=== PATIENT | male | born 1985 | race Caucasian/White ===

== ENCOUNTER 2020-06-24 21:10 | Observation (INO) | payer MEDICAID, SELFPAY ==
--- NOTE | ~2020-06-24 | CT_ITS ---
EXAMINATION: CTA chest PE protocol DATE: 06/26/2020 16:15 INDICATION: Tachycardia TECHNIQUE: Computed tomography angiography (CTA) of the chest was performed with 100 mL Omnipaque-350 intravenous contrast timed to evaluate the pulmonary arteries. Coronal maximum intensity projection 3D-reconstructions were created by the technologist. The dose-length product (DLP) was 956.06 mGy-cm. Automated exposure control and iterative reconstruction technique were employed. COMPARISON: None. FINDINGS: The pulmonary arteries are well-opacified. No pulmonary embolism is identified. There is gibbons bsegmental atelectasis of the lower lobes. The lungs are free of focal airspace opacities. There is n o pleural effusion or pneumothorax. No pathologically enlarged thoracic lymph nodes are identified. T he heart size is normal. There is a small sliding hiatal hernia. IMPRESSION: 1. No pulmonary embolism or acute cardiopulmonary abnormality. Reviewed, dictated and finalized at location A.
[2020-06-24 21:26] VITALS: BP 169/96; PULSE 147; RESP 19; TEMP 36.3; O2SAT 98
[2020-06-24 21:52] LABS: Basophils Absolute Auto 0.1 K/mm3 (0.0-0.1); Basophils Percent Auto 0.6 % (0.2-1.2); Eosinophils Absolute Auto 0.1 K/mm3 (0-0.3); Eosinophils Percent Auto 0.5 % (0-4.4); Hemoglobin 12.8 g/dL (14.0-18.0); Immature Granulocyte Absolute 0.19 K/mm3 (0.00-0.031); Immature Granulocyte Percent A 1.1 % (0-0.5); Lymphocytes Absolute Auto 2.46 K/mm3 (0.9-3.2); Lymphocytes Percent Auto 14.1 % (18.3-44.2); Mean Corpuscular HGB Conc 33.7 g/dl (32-36); Mean Corpuscular Hemoglobin 28.6 pg (26-34); Mean Corpuscular Volume 84.8 fl (80-100); Mean Platelet Volume 11.1 fl (7.4-10.4); Monocytes Percent Auto 5.6 % (2.6-8.5); Neutrophils Absolute Auto 13.6 K/mm3 (1.3-6.7); Neutrophils Percent Auto 78.1 % (45.5-73.1); Platelet Count Result 414 k/mm3 (150-375); Red Blood Count 4.48 M/mm3 (4.6-6.20); White Blood Count 17.4 K/mm3 (4.5-10.0)
[2020-06-24 22:00] LABS: Add Urine Microscopic? YES; Appearance Urine Clear (Clear); Bilirubin Urine Negative (Negative); Blood Urine Negative (Negative); Color Urine Straw (Yellow); Glucose Urine UA Negative (Negative); Ketones Urine Trace mg/dL (Negative); Leukocyte Esterase Ur Negative LEU/UL (Negative); Mucus Urine Rare /lpf; Nitrate Urine Negative (Negative); Protein Urine Negative (Negative); RBC Urine 0-2 /hpf (0-2); Specific Grav Ur 1.027 (1.001-1.035); Squamous Epithelial Cell Urine Rare /hpf (Few); Urobilinogen Urine Negative mg/dL (<2.0); WBC Urine 0-3 /hpf
[2020-06-24 22:05] LABS: Alanine Aminotransferase 26 U/L (4-50); Albumin Level 4.5 g/dL (3.5-5.1); Alkaline Phosphatase 73 U/L (38-126); Anion Gap 10 mmol/L (8-16); Aspartate Amino Transferase 22 U/L (17-59); Bilirubin,Total < 0.1 mg/dL (0.2-1.3); Blood Urea Nitrogen 37 mg/dL (9-20); Calcium 9.1 mg/dL (8.4-10.2); Carbon Dioxide 24 mmol/L (22-30); Chloride 103 mmol/L (98-107); Estimated CRCL calculation 133 ml/min; Estimated Glomerular Filt Rate > 60; Glucose 143 mg/dL (75-110); Lipase 46 U/L (23-300); Potassium 4.4 mmol/L (3.4-5.0); Sodium 137 mmol/L (137-145)
[2020-06-24] MEDS: LACTATED RINGERS 1,000 ML 999 ML IV CONT (22:27)
[2020-06-24] MEDS: PANTOPRAZOLE SODIUM IV 40 MG VIAL 80 MG IV PUSH (22:27)
[2020-06-24 22:33] LABS: Prothrombin Time 12.7 Seconds (11.1-14.7)
[2020-06-24 22:36] VITALS: BP 149/93; BP 154/104; PULSE 138; PULSE 139
[2020-06-24 22:37] VITALS: BP 154/108; PULSE 139
--- NOTE | 2020-06-24 22:52 | ED.GENADULT ---
HPI - General Adult General Chief complaint: Unspecified Stated complaint: black stool Time Seen by Provider: 06/24/20 21:47 Source: patient Mode of arrival: ambulatory Limitations: no limitations History of Present Illness HPI narrative: This patient is a 34 year old male who presents for evaluation of dark stools. Patient states last night he was not feeling well. This morning he noticed that his stools were dark . He has had 2 loose dark stools today. He called his PCP to discuss his symptoms and he was referred to the ER. He denies nausea, vomiting, abdominal pain, dizziness, chest pain. He denies history of PUD or GI bleeding. He does reports history of GERD which he takes tums . He states that he takes excedrine daily for months for headaches. He reports he is sweating but that is because his mask is making him hot. Related Data Home Medications Medication Instructions Recorded Confirmed lisinopril 10 mg PO DAILY 06/25/20 06/25/20 Allergies Allergy/AdvReac Type Severity Reaction Status Date / Time No Known Allergies Allergy Mild Verified 01/09/20 09:49 Review of Systems Review of Systems: All systems reviewed & are unremarkable except as noted in HPI and below Constitutional: Constitutional: Denies chills and Denies fever(s) Cardiovascular: Cardiovascular: Denies chest pain Respiratory: Respiratory: Denies dyspnea Gastrointestinal: Gastrointestinal: Denies abdominal pain, Denies nausea and Denies vomiting PMFSH Past Medical History Medical History Essential (primary) hypertension Gastro-esophageal reflux disease without esophagitis Surgical History Surgical History History of tonsillectomy and adenoidectomy Family History Family History Father Hypertension Family history of coronary artery disease Social History Social History Smoking status: Never smoker Second hand tobacco smoke exposure: No Alcohol intake: never Substance use: never Substance use type: does not use Gender identity (if verbalized by the patient): Male Spiritual care concerns: No Exam Const: General: no acute distress, alert and diaphoretic Orientation/consciousness: patient oriented x3 HENMT: Head: normocephalic and atraumatic Face and sinus: face symmetric Eyes: EOM: EOMs intact bilaterally Chest: Chest palpation & inspection: normal inspection of the chest Resp: Effort & Inspection: normal respiratory effort and no retractions Auscultation: clear to auscultation bilaterally Cardio: Rate: tachycardic Rhythm: regular rhythm Heart sounds: no murmurs GI: GI Palp: Yes Soft to palpation, No Tenderness to palpation present (GI), No Guarding due to palpation present (GI) and No Rigid due to palpation Auscultation: normal bowel sounds Rectal Exam: normal sphincter tone and heme positive stool Skin: General skin exam: normal color Rashes: no rashes Neuro: General: patient oriented x3 and moves all extremities Course Reevaluation(s) Date: 06/24/20 Consultations Consultation #1: I discussed case with Dr. Koko Rice who agrees to consult and agrees with protonix Date: 06/24/20 Time: 23:03 Consultation #2: I Discussed case with DR. Smith who accepts patient to IMU given tachycardia and leukocytosis Date: 06/24/20 Time: 23:35 Vital Signs Vital signs: Vital Signs Temperature 97.3 F L 06/24/20 21:26 Pulse Rate 147 H 06/24/20 21:26 Respiratory Rate 19 06/24/20 21:26 Blood Pressure 169/96 H 06/24/20 21:26 Pulse Oximetry 98 06/24/20 21:26 Temperature 96.7 F L 06/25/20 04:00 Pulse Rate 109 H 06/25/20 06:00 Respiratory Rate 20 06/25/20 04:00 Blood Pressure 132/86 06/25/20 04:00 Pulse Oximetry 99 06/25/20 04:00 Medical Decision Making V
--- NOTE | 2020-06-24 22:53 | ECG_ITS ---
Measurements Intervals [place] Rate: 130 P: 26 WV: 162 QRS: 18 QRSD: 82 T: 55 QT: 278 QTc: 409 Interpretive Statements SINUS TACHYCARDIA BORDERLINE R WAVE PROGRESSION, ANTERIOR LEADS MINIMAL Q WAVES- INFERIOR LEADS BORDERLINE T WAVE ABNORMALITY- HIGH LATERAL LEADS ABNORMAL ECG Electronically Signed On 06-25-2020 7:08:45 CDT by Ramez Celestin D.O.
[2020-06-24 23:51] LABS: Lactic Acid Reflex 1.4 mmol/L (0.7-2.1)
[2020-06-25] VITALS (20 sets, daily range): BP systolic 116–154; BP diastolic 75–102; PULSE 90–131; RESP 12–21; TEMP 35.8–37.1; O2SAT 97–100; BMI 39.6; BMI 42.5
[2020-06-25] MEDS: SODIUM CHLORIDE 0.9% IV 1,000 ML 999 ML IV CONT (00:31)
--- NOTE | 2020-06-25 00:54 | ADMGEN ---
This patient, Eleazar Vincent, was admitted to IMU Room 201-01 AT 0054. Patient/family oriented to hospital policies and general routines including ID bracelet, bed and alarms, visiting hours, pain management, procedures, bathroom and other care routines, personal items, smoking policy, room service/diet, and visiting hours. Valuables list has been completed. Information on how to activate the Rapid Response Team has been discussed. Patient/Family are encouraged to report perceived risks to care and to ask questions if they do not understand what they are told or what they should do.
--- NOTE | 2020-06-25 01:34 | PM.IMHP ---
H&P: HPI History of Present Illness Date/Time: 06/25/20 01:34 Chief complaint: upper GI bleeding Narrative: This is a 34 year old morbidly obese male with known HTN who presented to the hospital with a complaint of karan stools that he had yesterday. He denies any nausea, vomiting, or bright red rectal bleeding. He is known to take excedrin PO daily for the past few months for chronic headaches. This morning he felt lightheaded but denies passing out, chest pain, shortness of breath, abdominal pain or other symptoms. He has no previous history of GI bleeds or PUD. He is not on any anticoagulants. The patient was evaluated in the ER tonight and found to have anemia. Rectal exam performed in the ER was guaiac positive. He does report long standing heartburn and is known to frequently eat hot, spicy foods. He also experiences getting food getting stuck at the bottom of his esophagus occasionally. ER provider has consulted Gastroenterology specialist who has asked that we admit the patient to the hospital and they will evaluate him in the morning. Review of Systems Review of Systems: All systems reviewed & are unremarkable except as noted in HPI and below PMFSH Past Medical History Medical History Essential (primary) hypertension Gastro-esophageal reflux disease without esophagitis Surgical History Surgical History History of tonsillectomy and adenoidectomy Family History Family History Father Hypertension Family history of coronary artery disease Social History Social History Smoking status: Never smoker Second hand tobacco smoke exposure: No Alcohol intake: never Substance use: never Substance use type: does not use Gender identity (if verbalized by the patient): Male Spiritual care concerns: No Meds Home Medications and Allergies Home Medications Medication Instructions Recorded Confirmed Type lisinopril 20 mg tablet 20 mg PO DAILY #30 tablet 01/09/20 01/09/20 Rx citalopram 20 mg tablet 20 mg PO DAILY #30 tablet 01/25/20 Rx Allergies Allergy/AdvReac Type Severity Reaction Status Date / Time No Known Allergies Allergy Mild Verified 01/09/20 09:49 Vital Signs Vital Signs - 24 hr 06/24/20 21:26 06/24/20 22:36 06/24/20 22:37 Temperature 36.3 C L Pulse Rate 147 H 139 H 139 H Respiratory Rate 19 Blood Pressure 169/96 H 149/93 H 154/108 H Pulse Oximetry 98 06/25/20 00:47 06/25/20 01:02 Temperature 36.6 C 36.2 C L Pulse Rate 131 H 130 H Respiratory Rate 20 20 Blood Pressure 154/102 H 153/101 H Pulse Oximetry 97 99 Exam Const: General: cooperative, no acute distress, alert and awake Nutritional Appearance: obese morbidly obese Orientation/consciousness: patient oriented x3 HENMT: Head: normal to inspection General nose exam: Normal external nose present Face and sinus: normal facial exam Mouth: Yes Normal oral and palatal mucosa present and Yes oropharynx normal Eyes: Pupils: Equal, round and reactive pupils present EOM: EOMs intact bilaterally Neck: Neck: supple and no JVD Thyroid: thyroid normal Lymphatic: lymphadenopathy not noted Resp: Effort & Inspection: normal respiratory effort Auscultation: clear to auscultation bilaterally Cardio: Rate: regular rate Rhythm: regular rhythm Heart sounds: no murmurs GI: Inspection: normal to inspection Auscultation: normal bowel sounds Skin: General skin exam: normal color and no rashes or lesions noted Neuro: General: patient oriented x3 Cranial nerves: Yes CN's II-XII intact bilaterally and Yes Equal, round and reactive pupils present Speech: normal speech Motor exam (neuro): 5/5 motor strength present throughout Sensory Exam: normal sensation Extrem: General: normal to inspection and no
[2020-06-25 01:43] LABS: Hematocrit 34.4 % (42.0-52.0); Hemoglobin 11.6 g/dL (14.0-18.0)
[2020-06-25 06:24] LABS: Hemoglobin 10.4 g/dL (14.0-18.0)
[2020-06-25] MEDS: SODIUM CHLORIDE 0.9% IV 1,000 ML 125 ML IV CONT (09:13)
--- NOTE | 2020-06-25 10:18 | PM.IMPN ---
Progress Note: A&P Assessment and Plan (1) Upper GI bleed: Code(s): K92.2 - Gastrointestinal hemorrhage, unspecified Status: Inactive Assessment and Plan: ----- hemoglobin remained relatively stable but did drop a few points. Patient is non symptomatic and no evidence of bleeding on exam. Follow-up with primary care physician outpatient and continue PPI. See below (2) Tachycardia: Code(s): R00.0 - Tachycardia, unspecified Status: Acute Assessment and Plan: ----- resolved with IV fluids and reassurance as the patient was mildly anxious on admission. No PE or infection suspected. White blood cell count was elevated on admission likely reactionary. (3) Abnormal glucose: Code(s): R73.09 - Other abnormal glucose Status: Acute Assessment and Plan: ----- Prediabetic, follow-up with primary care physician. handouts given (4) Essential (primary) hypertension: Code(s): I10 - Essential (primary) hypertension Status: Chronic Assessment and Plan: ----- Blood pressure stable. Continue lisinopril (5) Gastro-esophageal reflux disease without esophagitis: Code(s): K21.9 - Gastro-esophageal reflux disease without esophagitis Status: Chronic (6) Leukocytosis: Code(s): D72.829 - Elevated white blood cell count, unspecified Status: Acute Assessment and Plan: ----- likely reactionary, no acute infection suspected. He has no evidence of infection on exam and his heart rate has improved (7) Esophagitis: Code(s): K20.9 - Esophagitis, unspecified Status: Acute Assessment and Plan: ----- found on exam, biopsy pending. Follow-up with Dr. Miller. Plan to do another EGD in 3 months. H pylori negative (8) Esophageal ulcer: Code(s): K22.10 - Ulcer of esophagus without bleeding Status: Acute Assessment and Plan: ----- continue PPI (9) Gastritis: Code(s): K29.70 - Gastritis, unspecified, without bleeding Status: Acute Assessment and Plan: ----- continue PPI (10) Chronic headaches: Code(s): R51 - Headache Status: Acute Assessment and Plan: ----- patient states they were getting better for a while but had a few last week. Follow-up with primary care physician. Avoid aspirin/ NSAIDs (11) Acute blood loss anemia: Code(s): D62 - Acute posthemorrhagic anemia Status: Acute Assessment and Plan: ----- likely due to esophagitis /gastritis. Hemoglobin remained stable and the patient has not had a bowel movement and has had no dark tarry stool today. He has no symptoms such as chest pain, shortness of breath, lightheadedness or dizziness. Plan to get an H&H on Tuesday. He was educated about symptoms of blood loss and to come back to emergency room if he has any issues with that Time Spent With Patient Time with patient: 25 - 35 minutes Subjective Date/time seen: 06/25/20 1200 Interval history: Pt is a Review of Systems Review of Systems: All systems reviewed & are unremarkable except as noted in HPI and below Exam Narrative: Exam Narrative: General: Well developed well nourished patient in NAD HEENT: normocephalic Neck: supple Neuro: Alert and oriented x4 CV: regular rate and rhythm on exam. sinusTachycardia noticed intermittently throughout the day, no worrisome telemetry alarm reviews Resp:CTA Abd: Soft, non distended. No pain to palpation. Positive bowel sounds Extremities: No swelling, erythema, or pain to palpation. Objective Data Vital Signs Vital Signs: Vital Signs - 24 hr 06/25/20 11:30 06/25/20 11:36 06/25/20 11:38 Temperature 96.5 F L 96.6 F L Pulse Rate 104 H 103 H Respiratory Rate 20 18 Blood Pressure 146/98 H 146/98 H Pulse Oximetry 99 100 100 06/25/20 12:22 06/25/20 12:30 06/25/20 12:32 Temperature 97.3 F L Pulse Rate 98 90 100 Resp
--- NOTE | 2020-06-25 11:11 | WPDANESEPPF ---
Anes - Initial Pre Proc Eval Procedure: Operation Date: 06/25/20 12:00 Proposed Procedures p Esophagogastroduodenoscopy - Ed Augustin MD Date/Time: 06/25/20 11:11 Surgeon: Nella Galvez PA-C Pre Op Diagnosis: upper GI bleeding Patient Data Age: 34 Gender: M Height: 5 ft 7 in Weight: 123 kg Last Vital Signs Temp 36.8 C 06/25/20 08:00 Pulse 112 H 06/25/20 08:00 Resp 20 06/25/20 08:00 BP 147/86 H 06/25/20 08:00 Pulse Ox 99 06/25/20 08:00 Allergies Allergy/AdvReac Type Severity Reaction Status Date / Time No Known Allergies Allergy Mild Verified 01/09/20 09:49 Home Medications Medication Instructions Recorded Confirmed Type lisinopril 10 mg PO DAILY 06/25/20 06/25/20 History Laboratory Tests 06/24/20 06/24/20 06/24/20 21:31 21:35 21:35 WBC 17.4 K/mm3 H K/mm3 (4.5-10.0) RBC 4.48 M/mm3 L M/mm3 (4.6-6.20) Hgb 12.8 g/dL L g/dL (14.0-18.0) Hct 38.0 % L % (42.0-52.0) MCV 84.8 fl fl (80-100) MCH 28.6 pg pg (26-34) MCHC 33.7 g/dl g/dl (32-36) RDW 13.0 % % (11.5-14.5) Plt Count 414 k/mm3 H k/mm3 (150-375) MPV 11.1 fl H fl (7.4-10.4) Immature Gran % (Auto) 1.1 % H % (0-0.5) Neut % (Auto) 78.1 % H % (45.5-73.1) Lymph % (Auto) 14.1 % L % (18.3-44.2) [place] % (Auto) 5.6 % % (2.6-8.5) Eos % (Auto) 0.5 % % (0-4.4) Baso % (Auto) 0.6 % % (0.2-1.2) Lymph # (Auto) 2.46 K/mm3 K/mm3 (0.9-3.2) [place] # (Auto) 1.0 K/mm3 H K/mm3 (0.1-0.6) Eos # (Auto) 0.1 K/mm3 K/mm3 (0-0.3) Baso # (Auto) 0.1 K/mm3 K/mm3 (0.0-0.1) Abs Immat Gran (auto) 0.19 K/mm3 H K/mm3 (0.00-0.031) Absolute Neuts (auto) 13.6 K/mm3 H K/mm3 (1.3-6.7) Absolute Nucleated RBC 0.0 K/mm3 K/mm3 (0.0-0.012) Nucleated RBC % 0.0 % % (0.0-0.2) PT 12.7 Seconds Seconds (11.1-14.7) INR 1.0 Sodium 137 mmol/L mmol/L (137-145) Potassium 4.4 mmol/L mmol/L (3.4-5.0) Chloride 103 mmol/L mmol/L (98-107) Carbon Dioxide 24 mmol/L mmol/L (22-30) Anion Gap 10 mmol/L mmol/L (8-16) BUN 37 mg/dL H mg/dL (9-20) Creatinine 0.80 mg/dL mg/dL (0.7-1.3) Estim Creat Clear Calc 133 ml/min ml/min Estimated GFR > 60 (59 - ) Glucose 143 mg/dL H mg/dL (75-110) Hemoglobin A1c Lactic Acid Calcium 9.1 mg/dL mg/dL (8.4-10.2) Total Bilirubin < 0.1 mg/dL L mg/dL (0.2-1.3) AST 22 U/L U/L (17-59) ALT 26 U/L U/L (4-50) Alkaline Phosphatase 73 U/L U/L (38-126) Total Protein 8.0 g/dL g/dL (6.3-8.2) Albumin 4.5 g/dL g/dL (3.5-5.1) Lipase 46 U/L U/L (23-300) Urine Color Urine Appearance Urine pH Ur Specific [place] Urine Protein Urine Glucose (UA) Urine Ketones Ur Blood (Man) Urine Nitrate Urine Bilirubin Urine Urobilinogen Leukocyte Esterase Rfl Urine RBC Urine WBC Ur Squamous Epith Cells Urine Mucus Blood Type Antibody Screen 06/24/20 06/24/20 06/24/20 21:53 22:26 23:35 WBC RBC Hgb Hct MCV MCH MCHC RDW Plt Count MPV Immature Gran % (Auto) Neut % (Auto) Lymph % (Auto) [place] % (Auto) Eos % (Auto) Baso % (Auto) Lymph # (Auto) [place] # (Auto) Eos # (Auto) Baso # (Auto)
[2020-06-25] MEDS: LACTATED RINGERS 1,000 ML 150 ML IV CONT (11:45)
--- NOTE | 2020-06-25 12:07 | WPDGICN ---
Assessment and Plan Assessment and plan (1) Melena: Code(s): K92.1 - Melena Status: Acute Assessment and Plan: will proceed with urgent EGD, probably bleeding ulcer, esophagitis continue with iv protonix and avoid any nsaid's/asa products (2) Acute blood loss anemia: Code(s): D62 - Acute posthemorrhagic anemia Status: Acute Assessment and Plan: continue to monitor h/h and supportive care (3) Tachycardia: Code(s): R00.0 - Tachycardia, unspecified Status: Acute (4) Gastro-esophageal reflux disease without esophagitis: Code(s): K21.9 - Gastro-esophageal reflux disease without esophagitis Status: Chronic (5) Leukocytosis: Code(s): D72.829 - Elevated white blood cell count, unspecified Status: Acute Assessment and Plan: probably stress, repeat again in am (6) Dysphagia: Code(s): R13.10 - Dysphagia, unspecified Status: Acute Assessment and Plan: egd today to assess GI Consult Note Consult date/time: 06/25/20 12:07 Reason for consult: melena HPI: Eleazar Vincent is a 34 year old male with history HTN, migraines using excedrin in daily basis here with new onset of dark tarry stools started yesterday. He denies any nausea, vomiting, or abdominal pain. Yesterday he felt lightheaded but denies syncope or shortness of breath.. He also mentioned that sometimes will feel that food getting caught in chest, never had EGD. Blood work showed wbc 17k, hb from 12.8 to 10.4. He is npo, started on iv protonix. Review of Systems Constitutional: Constitutional: Denies chills and Denies headache(s) Eyes: Eyes: Denies blurry vision ENT: Reports Normal hearing present, Denies headache(s) and Denies neck pain Cardiovascular: Cardiovascular: Denies chest pain and Denies dyspnea Respiratory: Respiratory: Denies dyspnea Gastrointestinal: Gastrointestinal: Reports melena Genitourinary: Genitourinary: Denies dysuria Musculoskeletal: Musculoskeletal: Denies neck pain Integumentary/Breasts: Skin/Breast: Denies dry skin Neurologic: Reports Normal hearing present, Denies headache(s) and Denies weakness Psychiatric: Psychiatric: Denies anxiety Endocrine: Endocrine: Denies change in body appearance Hematologic/Lymphatic: Hematologic/Lymphatic: Denies easy bleeding Allergic/Immunologic: Allergic/Immunologic: Denies urticaria PMFSH Past Medical History Medical History Anemia Depression Essential (primary) hypertension LIZANDRO (generalized anxiety disorder) Gastro-esophageal reflux disease without esophagitis HLD (hyperlipidemia) Upper GI bleed Surgical History Surgical History History of tonsillectomy and adenoidectomy Family History Family History Father Hypertension Family history of coronary artery disease Social History Social History Smoking status: Never smoker Second hand tobacco smoke exposure: No Alcohol intake: never Substance use: never Substance use type: does not use Gender identity (if verbalized by the patient): Male Spiritual care concerns: No Meds Home Medications and Allergies Home Medications Medication Instructions Recorded Confirmed Type lisinopril 10 mg PO DAILY 06/25/20 06/25/20 History Allergies Allergy/AdvReac Type Severity Reaction Status Date / Time No Known Allergies Allergy Mild Verified 01/09/20 09:49 Vital Signs Vital Signs - 24 hr 06/24/20 21:26 06/24/20 22:36 06/24/20 22:37 Temperature 97.3 F L Pulse Rate 147 H 139 H 139 H Respiratory Rate 19 Blood Pressure 169/96 H 149/93 H 154/108 H Pulse Oximetry 98 06/25/20 00:47 06/25/20 01:00 06/25/20 01:02 Temperature 97.9 F 97.2 F L Pulse Rate 131 H 125 H 130 H Respi
--- NOTE | 2020-06-25 12:25 | PC.NURSE ---
1120- to GI lab for EGD
--- NOTE | 2020-06-25 14:29 | PM.DS ---
DS: Admitting Diagnosis Admitting Diagnosis Admitting Diagnosis: upper GI bleeding DS: Discharge Diagnosis Discharge Diagnosis (1) Tachycardia: Code(s): R00.0 - Tachycardia, unspecified Status: Acute Assessment and Plan: -----intermittent, likely due to anxiety. The patient states that he has been very anxious during his hospitalization and also had an anxiety attack before leaving because he was worried about his hemoglobin. We recheck did and I assured him he was okay and it was improving. We also did an EKG which seem like it had improved from the 1 but I did see some Q-waves in the area of lead 3 which is likely a normal variant but because of his tachycardia a CTA was done which was negative for PE or acute abnormality. TSH normal (2) Abnormal glucose: Code(s): R73.09 - Other abnormal glucose Status: Acute Assessment and Plan: ----- Prediabetic, follow-up with primary care physician. handouts given (3) Essential (primary) hypertension: Code(s): I10 - Essential (primary) hypertension Status: Chronic Assessment and Plan: ----- last blood pressure 137/76. Continue lisinopril (4) Gastro-esophageal reflux disease without esophagitis: Code(s): K21.9 - Gastro-esophageal reflux disease without esophagitis Status: Chronic (5) Leukocytosis: Code(s): D72.829 - Elevated white blood cell count, unspecified Status: Acute Assessment and Plan: ----- likely reactionary, no acute infection suspected. He has no evidence of infection on exam and his heart rate has improved (6) Esophagitis: Code(s): K20.9 - Esophagitis, unspecified Status: Acute Assessment and Plan: ----- found on exam. Biopsy of the stomach showed mild chronic gastritis. Follow-up with Dr. Miller. Plan to do another EGD in 3 months (7) Esophageal ulcer: Code(s): K22.10 - Ulcer of esophagus without bleeding Status: Acute Assessment and Plan: ----- continue PPI (8) Gastritis: Code(s): K29.70 - Gastritis, unspecified, without bleeding Status: Acute Assessment and Plan: ----- continue PPI (9) Chronic headaches: Code(s): R51 - Headache Status: Acute Assessment and Plan: ----- patient states they were getting better for a while but had a few last week. Follow-up with primary care physician. Avoid aspirin/ NSAIDs DS: Summary Hospital Course Reason for hospitalization: Upper GI bleed Hospital Course: Patient is a 34-year-old male who presented emergency room after feeling unwell with dark stools. In the ER his vitals were temperature 97.3? F, pulse 147, respiratory rate 19, blood pressure 169/96, pulse ox 98 on room air. Initial hemoglobin 12.8. BMP relatively normal with exception of BUN which is 37 likely due to GI bleed. Glucose elevated 143, prediabetic. Lactic acid normal. UA normal. In the ER showed sinus tachycardia with borderline R-wave progression, minimal Q-waves in the inferior leads and borderline T-wave abnormality in the high lateral leads. Patient was admitted to the hospitalist service and kept on telemetry. He occasionally had tachycardia but it improved throughout his stay. The patient was very anxious which could be contributing. His hemoglobin remained relatively stable and was 10.1 the day of discharge. He underwent an EGD which showed esophagitis, esophageal ulcer, and gastritis. He was started on Protonix 40 mg b.i.d.. He had no further issues in the day of discharge did not have any stools. He was educated about the signs and symptoms of blood loss and what to come back to emergency room for. The patient was very worried about this. He was discharged and once he got on the elevator he started feeling lightheaded, dizzy and had to sit down. His blood pressure was checked which was normal during this time. He was taken back
[2020-06-25 15:06] LABS: Hematocrit 30.5 % (42.0-52.0); Hemoglobin 10.2 g/dL (14.0-18.0); Mean Corpuscular HGB Conc 33.4 g/dl (32-36); Mean Corpuscular Hemoglobin 28.3 pg (26-34); Mean Corpuscular Volume 84.7 fl (80-100); Platelet Count Result 287 k/mm3 (150-375); Red Cell Distribution Width 13.1 % (11.5-14.5); White Blood Count 10.3 K/mm3 (4.5-10.0)
[2020-06-25] MEDS: SUCRALFATE SUSP 100 MG/ML 10 ML UDC 1000 MG PO ×2 (16:54→20:22)
[2020-06-25 18:22] LABS: Hematocrit 29.8 % (42.0-52.0)
[2020-06-25] MEDS: PANTOPRAZOLE 40 MG TABLET PO (20:22)
--- NOTE | 2020-06-25 20:52 | PC.NURSE ---
This patient, Eleazar Vincent, was transferred to [ [id number]] on 06/25/20 at 2053. Personal belongings sent with patient. Belongings list checked and signed with receiving [ ]. Report given to Antonette Bhakta rn]. Appropriate documentation sent with patient.
--- NOTE | 2020-06-25 21:36 | PC.NURSE ---
This patient, Eleazar Vincent, was admitted to Medical Room 251-01. Patient/family oriented to hospital policies and general routines including ID bracelet, bed and alarms, visiting hours, pain management, procedures, bathroom and other care routines, personal items, smoking policy, room service/diet, and visiting hours. Valuables list has been completed. Information on how to activate the Rapid Response Team has been discussed. Patient/Family are encouraged to report perceived risks to care and to ask questions if they do not understand what they are told or what they should do.
[2020-06-26] VITALS (7 sets, daily range): BP systolic 137–148; BP diastolic 76–88; PULSE 88–109; RESP 12–18; TEMP 36.4–36.6; O2SAT 98–100
[2020-06-26 05:50] LABS: Basophils Absolute Auto 0.1 K/mm3 (0.0-0.1); Basophils Percent Auto 0.5 % (0.2-1.2); Eosinophils Absolute Auto 0.2 K/mm3 (0-0.3); Eosinophils Percent Auto 2.4 % (0-4.4); Hematocrit 29.4 % (42.0-52.0); Hemoglobin 9.7 g/dL (14.0-18.0); Immature Granulocyte Absolute 0.11 K/mm3 (0.00-0.031); Immature Granulocyte Percent A 1.1 % (0-0.5); Lymphocytes Absolute Auto 2.59 K/mm3 (0.9-3.2); Lymphocytes Percent Auto 25.6 % (18.3-44.2); Mean Corpuscular Hemoglobin 28.5 pg (26-34); Mean Corpuscular Volume 86.5 fl (80-100); Mean Platelet Volume 10.6 fl (7.4-10.4); Monocytes Absolute Auto 0.6 K/mm3 (0.1-0.6); Monocytes Percent Auto 6.1 % (2.6-8.5); Neutrophils Absolute Auto 6.5 K/mm3 (1.3-6.7); Neutrophils Percent Auto 64.3 % (45.5-73.1); Platelet Count Result 255 k/mm3 (150-375); White Blood Count 10.1 K/mm3 (4.5-10.0)
[2020-06-26 06:14] LABS: Alanine Aminotransferase 24 U/L (4-50); Albumin Level 3.7 g/dL (3.5-5.1); Alkaline Phosphatase 56 U/L (38-126); Anion Gap 7 mmol/L (8-16); Aspartate Amino Transferase 28 U/L (17-59); Bilirubin,Total 0.2 mg/dL (0.2-1.3); Blood Urea Nitrogen 17 mg/dL (9-20); Calcium 8.3 mg/dL (8.4-10.2); Carbon Dioxide 25 mmol/L (22-30); Chloride 105 mmol/L (98-107); Estimated CRCL calculation 125 ml/min; Estimated Glomerular Filt Rate > 60; Glucose 98 mg/dL (75-110); Sodium 137 mmol/L (137-145)
[2020-06-26] MEDS: SUCRALFATE SUSP 100 MG/ML 10 ML UDC 1000 MG PO (07:48)
[2020-06-26] MEDS: lisinopriL 10 MG TABLET PO (08:56)
[2020-06-26] MEDS: PANTOPRAZOLE 40 MG TABLET PO (08:56)
--- NOTE | 2020-06-26 10:24 | WPDGIPROGNO ---
Progress Note: A&P Assessment and Plan (1) Esophageal ulcer: Code(s): K22.10 - Ulcer of esophagus without bleeding Status: Acute Assessment and Plan: severe esophagitis and also gastritis will need longterm ppi bid, avoid nsaids and discontinue excedrin also will use carafate with meals for 2 weeks follow up office in 3-4 weeks and EGD in 3 months to assess for healing ok to go home by gi standpoint (2) Esophagitis: Code(s): K20.9 - Esophagitis, unspecified Status: Acute (3) Gastritis: Code(s): K29.70 - Gastritis, unspecified, without bleeding Status: Acute (4) Acute blood loss anemia: Code(s): D62 - Acute posthemorrhagic anemia Status: Acute Assessment and Plan: hb relatively stable, last one 9.7 (5) Melena: Code(s): K92.1 - Melena Status: Acute Subjective Date/time seen: 06/26/20 10:24 Interval history: he is tolerating diet, no pain. Yesterday had dark stool. Review of Systems Review of Systems: All systems reviewed & are unremarkable except as noted in HPI and below Exam Const: General: comfortable and no acute distress HENMT: General nose exam: Normal nares present Eyes: General: appearance normal, both eyes and all related structures Neck: Neck: no JVD Resp: Auscultation: clear to auscultation bilaterally Cardio: Rate: regular rate Rhythm: regular rhythm GI: Inspection: non-distended GI Palp: Yes Soft to palpation Skin: General skin exam: normal color Neuro: General: gait normal Speech: normal speech Extrem: General: normal to inspection Psych: Mental Status: mental status grossly normal Objective Data Vital Signs Vital Signs: Vital Signs - 24 hr 06/25/20 11:30 06/25/20 11:36 06/25/20 11:38 Temperature 96.5 F L 96.6 F L Pulse Rate 104 H 103 H Respiratory Rate 20 18 Blood Pressure 146/98 H 146/98 H Pulse Oximetry 99 100 100 06/25/20 12:22 06/25/20 12:30 06/25/20 12:32 Temperature 97.3 F L Pulse Rate 98 90 100 Respiratory Rate 18 18 19 Blood Pressure 129/88 133/86 116/80 Pulse Oximetry 98 97 99 06/25/20 12:42 06/25/20 14:35 06/25/20 16:00 Temperature 97.9 F 97.7 F Pulse Rate 98 98 107 H Respiratory Rate 21 H 18 20 Blood Pressure 126/75 144/90 H 152/98 H Pulse Oximetry 98 98 98 06/25/20 18:00 06/25/20 19:15 06/25/20 20:00 Temperature 97.9 F Pulse Rate 104 H 100 100 Respiratory Rate 18 18 Blood Pressure Pulse Oximetry 100 100 06/25/20 20:58 06/26/20 00:00 06/26/20 04:00 Temperature 98.8 F Pulse Rate 102 H 88 90 Respiratory Rate 12 Blood Pressure 147/89 H Pulse Oximetry 100 06/26/20 06:00 Temperature 97.6 F Pulse Rate 109 H Respiratory Rate 12 Blood Pressure 142/76 H Pulse Oximetry 98 Intake/Output Intake/Output: Intake & Output 06/23/20 06/24/20 06/25/20 06/26/20 23:59 23:59 23:59 23:59 Intake Total 1000 2742 350 Output Total 1375 Balance 1000 1367 350 Meds/Results Medications: Active Medications Generic Name Dose Route Start Last Admin Trade Name Freq PRN Reason Stop Dose Admin Lisinopril 10 mg 06/26/20 09:00 06/26/20 08:56 Prinivil PO 10 mg DAILY GEORGE Administration Ondansetron HCl 4 mg 06/25/20 00:02 Zofran Inj IV PUSH Q4H PRN Nausea Pantoprazole Sodium 40 mg 06/25/20 21:00 06/26/20 08:56 Protonix PO 40 mg Q12HR GEORGE Administration Sucralfate 1,000 mg 06/25/20 16:30 06/26/20 07:48 Carafate PO 1,000 mg ACHS GEORGE Administration Labs Labs: Laboratory Results - last 24 hr 06/25/20 06/25/20 06/25/20 13:10 14:38 18:18 WBC 10.3 H RBC 3.60 L Hgb 10.0 L 10.2 L 10.0 L Hct 30.0 L 30.5 L 29.8 L MCV 84.7 MCH 28.3 MCHC 33.4 RDW 13.1 Plt Count 287 MPV 11.0 H Immature Gran % (Auto) Neut % (Auto) Lymph % (Auto) [place] % (Auto) Eos % (Auto) Baso % (Auto) Lymph # (Auto) [place] # (Auto) Eos # (Auto) Baso
[2020-06-26 12:14] LABS: Glucose Point of Care 94 (65-105)
[2020-06-26 13:08] LABS: Hematocrit 30.2 % (42.0-52.0); Hemoglobin 10.1 g/dL (14.0-18.0)
--- NOTE | 2020-06-26 13:47 | ECG_ITS ---
Measurements Intervals [place] Rate: 88 P: 24 MN: 143 QRS: 31 QRSD: 98 T: 54 QT: 350 QTc: 424 Interpretive Statements SINUS RHYTHM LOW QRS VOLTAGE IN PRECORDIAL LEADS MINIMAL Q WAVES- INFERIOR LEADS BORDERLINE ECG Electronically Signed On 06-26-2020 14:06:45 CDT by Ramez Celestin D.O.
[2020-06-26] MEDS: ALPRAZolam 0.25 MG TABLET PO (15:22)
== END 2020-06-26 16:40 | disposition home or self-care (01) ==
LOC: ANHED 21:55 → ANHIMU 06-25 00:14 → ANH2MED 06-30 14:05 → ANHIMU 06-30 14:05
PROVIDERS: Internal Medicine Gastroenterology; Physician Assistant; Admitting Provider Family Medicine; Emergency Provider General Practice; PCP Family Medicine; Visit Provider Family Medicine
PROC: 0DJ08ZZ Inspection of Upper Intestinal Tract, Via Natural or Artificial Opening Endoscopic (ICD-10-PCS; CPT 43235; principal; 2020-06-25 12:00)
DX: K29.51 Unspecified chronic gastritis with bleeding (principal); K21.0 Gastro-esophageal reflux disease with esophagitis; K22.10 Ulcer of esophagus without bleeding; K44.9 Diaphragmatic hernia without obstruction or gangrene; D62 Acute posthemorrhagic anemia; R13.10 Dysphagia, unspecified; I10 Essential (primary) hypertension; R00.0 Tachycardia, unspecified; F41.9 Anxiety disorder, unspecified; D72.829 Elevated white blood cell count, unspecified; R73.09 Other abnormal glucose; R51 Headache; E78.5 Hyperlipidemia, unspecified; Z79.899 Other long term (current) drug therapy
CPT/HCPCS: 43239; 36415; 71275; 80053; 81001; 83036; 83605; 83690; 84443; 85014; 85018; 85025; 85027; 85610; 86850; 86900; 86901; 87081; 88305; 93005; 96361; 96365; 96366; 96374; 99285; A9270; C9113; G0378; G0379; J2704; J7030; J7060; J7120; Q9967

== ENCOUNTER 2020-08-07 16:38 | Inpatient (IN) | payer BC, SELFPAY ==
[2020-08-07] VITALS (20 sets, daily range): BP systolic 128–172; BP diastolic 63–117; PULSE 0–134; RESP 16–30; TEMP 36.4–37.2; O2SAT 97–100; BMI 43.4
--- NOTE | ~2020-08-07 | XR_ITS ---
XR chest 1V portable DATE: 08/07/2020 17:14 INDICATION: Medial chest pain. STEMI. TECHNIQUE: Portable AP chest on 08/07/2020 at 1713 hours COMPARISON: 06/26/2020 CT pulmonary scan 07/27/2011 2 view chest FINDINGS: Normal heart size. No hilar or mediastinal enlargement. No pulmonary infiltrate or consolid ation, pleural effusion or pulmonary vascular congestion or pneumothorax. IMPRESSION: No active cardiopulmonary disease Reviewed, dictated and finalized at location B.
--- NOTE | 2020-08-07 16:44 | ECG_ITS ---
Measurements Intervals [place] Rate: 122 P: [place]: 0 QRS: 26 QRSD: 85 T: 40 QT: 296 QTc: 423 Interpretive Statements SINUS TACHYCARDIA LOW QRS VOLTAGE IN PRECORDIAL LEADS EXTENSIVE ANTERIOR ST ELEVATION MYOCARDIAL INFARCT- ACUTE HIGH LATERAL ST ELEVATION MYOCARDIAL INJURY- ACUTE ABNORMAL ECG Electronically Signed On 08-07-2020 16:49:22 CDT by Ramez Celestin D.O.
--- NOTE | 2020-08-07 16:59 | ED.CHESTPAIN ---
HPI - Chest Pain General Chief Complaint: Chest Pain Stated Complaint: CP Time Seen by Provider: 08/07/20 16:44 Source: patient and family Mode of arrival: ambulatory Limitations: no limitations History of Present Illness HPI narrative: 34 years old white male presents with intermittent chest pain, left chest, radiating to left shoulder, pressure type, denies any shortness of breath, usually last up to 5 minutes. Patient reported that this symptom comes at rest and sometimes comes on exertion. History of hypertension, father had history of heart attack at unknown age. Currently patient is asymptomatic, last chest pain was 10 minutes prior to arrival to the emergency room. Patient does not smoke or drink. Patient denies any fever, chills, nausea, vomiting, back pain or abdominal pain Patient denies any drug use STEMI was called immediately Related Data Home Medications Medication Instructions Recorded Confirmed lisinopril 10 mg PO DAILY 06/25/20 06/25/20 Allergies Allergy/AdvReac Type Severity Reaction Status Date / Time No Known Allergies Allergy Mild Verified 01/09/20 09:49 Review of Systems Review of Systems: Narrative: CONSTITUTIONAL: Denies fever, chills, or sweats. EYES: Denies visual changes, redness, or discharge. ENT: Denies rhinorrhea, congestion, sore throat, or otalgia. CARDIOVASCULAR: Denies chest pain, palpitations, or edema. RESPIRATORY: Denies cough or dyspnea. GASTROINTESTINAL: Denies abdominal pain, nausea, vomiting, or diarrhea. GENITOURINARY: Denies dysuria or hematuria. SKIN: Denies rash or itching. MUSCULOSKELETAL: Denies back pain, joint pain, or myalgia. NEUROLOGIC: Denies headache, numbness, or weakness. PSYCHIATRIC: Denies anxiety or depression. [facility] Past Medical History Medical History Acute blood loss anemia Anemia Depression Dysphagia Essential (primary) hypertension LIZANDRO (generalized anxiety disorder) Gastro-esophageal reflux disease without esophagitis HLD (hyperlipidemia) Leukocytosis Melena Upper GI bleed Surgical History Surgical History History of tonsillectomy and adenoidectomy Family History Family History Father Hypertension Family history of coronary artery disease Social History Social History Smoking status: Never smoker Second hand tobacco smoke exposure: No Alcohol intake: never Substance use: never Substance use type: does not use Gender identity (if verbalized by the patient): Male Spiritual care concerns: No Exam Narrative: Exam Narrative: General appearance: Well-developed, well-nourished, anxious, in tears Skin: Normal color Head: Normocephalic, nontraumatic Eyes: Clear conjunctiva ENT: Oropharynx normal, ears normal, nose normal Neck: Supple, nontender Chest and respiratory: Airway patent, no respiratory distress, no accessory muscle use Heart: Regular rate/rhythm Abdomen: Soft, nontender, no organomegaly, quiet bowel sounds Vascular: Normal peripheral pulses, normal capillary refill. Musculoskeletal: Normal range of motion, nontender back Neurologic: Alert and oriented ?3, TRAINING AND DEVELOPMENT OFFICER is normal as tested, no gross motor deficit Course Course Emergency Course: Currently patient is asymptomatic, very anxious Consultations Consultation #1: Dr. Fraser Date: 08/07/20 Time: 18:15 Vital Signs Vital signs: Vital Signs Pulse Rate 134 H 08/07/20 16:47 Respiratory Rate 30 H
--- NOTE | 2020-08-07 17:02 | ECG_ITS ---
Measurements Intervals [place] Rate: 103 P: 34 SD: 144 QRS: 30 QRSD: 97 T: 57 QT: 327 QTc: 428 Interpretive Statements SINUS TACHYCARDIA LOW QRS VOLTAGE IN PRECORDIAL LEADS ANTEROSEPTAL ST ELEVATION MYOCARDIAL INJURY- ACUTE HIGH LATERAL ST ELEVATION MYOCARDIAL INJURY- ACUTE BASELINE ARTIFACT- I, II, AVR, V1 ABNORMAL ECG Electronically Signed On 08-07-2020 20:38:20 CDT by Ramez Celestin D.O.
[2020-08-07 17:13] LABS: Basophils Absolute Auto 0.1 K/mm3 (0.0-0.1); Basophils Percent Auto 0.5 % (0.2-1.2); Eosinophils Absolute Auto 0.2 K/mm3 (0-0.3); Eosinophils Percent Auto 1.3 % (0-4.4); Hematocrit 38.7 % (42.0-52.0); Hemoglobin 12.6 g/dL (14.0-18.0); Immature Granulocyte Absolute 0.13 K/mm3 (0.00-0.031); Immature Granulocyte Percent A 0.8 % (0-0.5); Lymphocytes Absolute Auto 3.17 K/mm3 (0.9-3.2); Lymphocytes Percent Auto 18.4 % (18.3-44.2); Mean Corpuscular HGB Conc 32.6 g/dl (32-36); Mean Corpuscular Hemoglobin 25.3 pg (26-34); Mean Corpuscular Volume 77.7 fl (80-100); Mean Platelet Volume 10.6 fl (7.4-10.4); Monocytes Absolute Auto 1.1 K/mm3 (0.1-0.6); Monocytes Percent Auto 6.3 % (2.6-8.5); Neutrophils Absolute Auto 12.6 K/mm3 (1.3-6.7); Neutrophils Percent Auto 72.7 % (45.5-73.1); Platelet Count Result 566 k/mm3 (150-375); Red Blood Count 4.98 M/mm3 (4.6-6.20); Red Cell Distribution Width 13.2 % (11.5-14.5); White Blood Count 17.3 K/mm3 (4.5-10.0)
[2020-08-07 17:26] LABS: Alanine Aminotransferase 33 U/L (4-50); Albumin Level 4.8 g/dL (3.5-5.1); Alkaline Phosphatase 103 U/L (38-126); Anion Gap 15 mmol/L (8-16); Aspartate Amino Transferase 34 U/L (17-59); Bilirubin,Total 0.3 mg/dL (0.2-1.3); Blood Urea Nitrogen 14 mg/dL (9-20); Calcium 9.6 mg/dL (8.4-10.2); Carbon Dioxide 24 mmol/L (22-30); Chloride 101 mmol/L (98-107); Cholesterol 209 mg/dL (0-200); Estimated Glomerular Filt Rate > 60; Glucose 140 mg/dL (75-110); HDL Direct 29 mg/dL; INR 1.1; Potassium 3.2 mmol/L (3.4-5.0); Prothrombin Time 13.7 Seconds (11.1-14.7); Sodium 140 mmol/L (137-145); Triglycerides 202 mg/dL (<150)
[2020-08-07 17:27] LABS: Partial Thromboplastin Time 27.5 SECONDS (22.3-36.8)
[2020-08-07 17:37] LABS: LDL Cholesterol Direct 148 mg/dL
[2020-08-07 17:39] LABS: Troponin I 0.186 ng/mL (0.000-0.034)
--- NOTE | 2020-08-07 17:43 | PC.NURSE ---
1652 - ERP CRAMER AT BEDSIDE, SEE ORDER SHEET. 1655 - 5MG LOPRESSOR GIVEN STAT IVP 1657 - 1MG ATIVAN GIVEN STAT IVP 1700 - 5MG LOPRESSOR GIVEN STAT IVP 1704 - SECOND EKG GIVEN PER VERBAL ORDER FROM CUSTOM DECORATING CONSULTANT. 1705 5MG LOPRESSOR GIVEN STAT IVP 1732 - BRILINTA 180MG PO AND HEPARIN 5000 U GIVEN IVP AT VERBAL ORDER FROM CUSTOM DECORATING CONSULTANT.
--- NOTE | 2020-08-07 17:47 | PC.NURSE ---
1732 - 007 ASPIRIN GIVEN PO
--- NOTE | 2020-08-07 18:04 | PM.IMHP ---
H&P: HPI History of Present Illness Date/Time: Date of service: 08/07/20 18:04 cardiology history and physical Chief complaint: CP Narrative: Eleazar Vincent is a 34 year old male with a history of hypertension, gastric ulcer with anemia, morbid obesity who presents to the emergency department by private vehicle with complaints of 3 days intermittent chest pain. Chest pain described as and at times sharp otherwise tight a pressure-like sensation left upper chest radiating to the left shoulder into the arm. symptoms initially would last approximately 5 minutes then resolved spontaneously occurring at rest. Two days ago symptoms or noted more consistently with exertion but not reliably. he then states yesterday he did not have much chest discomfort but then this afternoon while working on his son's motor bike he being carrying a heavy gasoline tank and developed left substernal chest pain similar to prior symptoms radiating to left arm associated diaphoresis and fatigue. He admits to feeling fatigued past several days. Denies shortness of breath at this time. Denies chest pain at this time when asked. Then later admitted to residual left shoulder pressure which was quite mild. Initial EKG revealed anteroseptal Q-waves with ST elevation with reciprocal inferior ST depressions. Repeat EKG revealed improvement but without complete resolution of ST elevations. At this time when patient states he feels normal and has no symptoms. Initial questioning he denied any bleeding history or other complications. Upon review of his blood work which returned revealed mild anemia hemoglobin 12.6 at which time I inquired further. He then admitted he forgot he had gastric ulcers on EGD in June but did not require transfusion. He has been treated with Protonix. troponin returned at 0.186. Discussed with interventionalist on-call who is en route to take the patient to the cardiac catheterization lab. he states he took 2 Tylenol as he read on the Internet that is what should be done if he was concerned about having a heart attack. He was in sinus tachycardia heart rate in the 120s with blood pressure 170/120 at presentation. Review of Systems Review of Systems: All systems reviewed & are unremarkable except as noted in HPI and below Constitutional: Constitutional: Reports as per HPI, Reports no additional constitutional complaints and Reports fatigue Eyes: Eyes: Reports as per HPI and Reports no additional eye complaints ENT: Reports system reviewed and no additional complaints, except as documented and Reports as per HPI Cardiovascular: Cardiovascular: Reports as per HPI, Reports no additional cardiovascular complaints, Reports chest pain, Reports diaphoresis, Denies leg edema, Denies lightheadedness and Reports palpitations Respiratory: Respiratory: Reports as per HPI, Reports no additional respiratory complaints, Denies hemoptysis, Denies dyspnea and Denies dyspnea on exertion Gastrointestinal: Gastrointestinal: Reports as per HPI, Reports no additional gastrointestinal complaints, Denies abdominal pain, Denies melena, Denies hematochezia, Denies nausea, Denies vomiting and Denies hematemesis Genitourinary: Genitourinary: Reports no additional male genitourinary complaints and Reports as per HPI Musculoskeletal: Musculoskeletal: Reports no additional musculoskeletal complaints and Reports as per HPI Integumentary/Breasts: Skin/Breast: Reports system reviewed and no additional complaints, except as docu and Reports as per HPI Neurologic: Reports system reviewed and no additional complaints, except as documented and Reports as per HPI Psychiatric: Psychiatric: Reports no additional psychiatric complaints and Reports as per HPI Endocrine: Endocrine: Reports no additional endocrine complaints and Reports as per HPI Hematologic/Lymphatic: Hematologic/Lymphatic: Reports no additional hematologic/lymphatic complaints and Reports as per HPI Allergic/Immunol
--- NOTE | 2020-08-07 18:39 | WPDCARDPROC ---
Cardiac Cath Procedure Note Date of procedure:: 08/07/20 Performing physician:: Maxwell Gordon MD Procedure Procedure note:: EMERGENTCARDIAC CATHETERIZATION AND PERCUTANEOUS CORONARY INTERVENTION REPORT DATE OF PROCEDURE: 08/07/2020 INDICATION FOR PROCEDURE: Anteroseptal ST-elevation SC BRIEF CLINICAL HISTORY: 34-year-old male with hypertension, morbid obesity, ? peptic ulcer disease. Patient came to [facility] emergency room on 08/07/2020 with complaints of 3 Day history of intermittent chest pain. His EKG showed anteroseptal ST-elevation with reciprocal ST depression. Patient was emergently brought to the helper animal laboratory for primary PCI. Patient received aspirin, loading dose of ticagrelor 180 mg; and heparin 5000 units in the emergency room. PROCEDURES PERFORMED: 1. Emergent left heart catheterization- Selective left and right coronary angiogram; left ventriculogram and hemodynamic assessment 2. Primary percutaneous coronary intervention- balloon angioplasty and stenting of thrombotic, subtotal occlusion of upper part of mid LAD using a 3.5 x 20 mm [employer] Promus everolimus eluting stent with pentecostal of SHANDRA 3 flow. 3. Selective right common femoral angiogram and deployment of Angio-Seal hemostatic device 4. Moderate sedation-CPT code 35172 MODERATE SEDATION: Midazolam 1 mg; fentanyl 25 mcg. Start time 1806 , Stop time 1834 ; Total dtuj-ab-ixoy time 28 minutes; Antonette Newman RN was trained observer for moderate sedation. ACCESS SITE: Right common femoral artery PROCEDURE NOTE: patient was emergently brought to catheterization lab and prepped and draped in a usual sterile manner. After local anesthesia with lidocaine, right common femoral artery access was taken with micropuncture needle followed by insertion of a 6 [place] sheath. Selective left and right coronary angiogram was performed using 6 [place] 3.5 CLS guide catheter and JR4 catheters respectively. Orthogonal views were taken. After completion of PCI, a 5 [place] pigtail catheter was advanced in the LV cavity and was flushed with normal saline. LV pressure measurement was performed. After this, left ventriculogram was performed. The catheter was flushed again, and gradient across the aortic valve was measured on the pullback of the catheter. Selective right common femoral angiogram was performed after PCI followed by successful deployment of Angio-Seal vascular closure device. Patient tolerated procedure well without any immediate procedure related complications. FINDINGS: LEFT MAIN CORONARY: the left main coronary artery is a large caliber, short vessel, no significant focal stenosis. The vessel bifurcates into LAD and left circumflex branches. LEFT ANTERIOR DESCENDING ARTERY: The proximal LAD is a medium caliber vessel. there is 99% subtotal, thrombotic occlusion in the upper part of the mid LAD at the origin of the diagonal branch. Before intervention, SHANDRA 0 flow was seen in the distal LAD. Post intervention, the remainder of the mid LAD and distal LAD is without significant focal stenosis. The LAD reaches the LV apex. The diagonal branches are medium-sized vessels without significant focal stenosis. LEFT CIRCUMFLEX ARTERY: The left circumflex artery is a large caliber, codominant vessel. The vessel gives rise to a large-sized OM1 branch, and small to medium size OM 2 and LPDA branches. RIGHT CORONARY ARTERY: The RCA is a medium to large caliber, tortuous, codominant vessel. Vessel gives rise to medium size PDA and PLV branches. Mild diffuse plaque is seen in the RPL branch. LEFT VENTRICULOGRAM: LV systolic dysfunction, ejection fraction about 45%; apical segment is dyskinetic; basal segments preserved. LVEDP elevated at 24 mmHg. HEMODYNAMIC ASSESSMENT: Opening pressure 131/100 mmHg , closing pressure 148/96 mmHg , LVEDP 24 mmHg; no significant gradient across aortic valve on the pullback of pigtail catheter. RIGHT COMMON FEMO
--- NOTE | 2020-08-07 19:12 | ADMGEN ---
This patient, Eleazar Vincent, was admitted to IMU Room 231-01 at 1900. Patient/family oriented to hospital policies and general routines including ID bracelet, bed and alarms, visiting hours, pain management, procedures, bathroom and other care routines, personal items, smoking policy, room service/diet, and visiting hours. Valuables list has been completed. Information on how to activate the Rapid Response Team has been discussed. Patient/Family are encouraged to report perceived risks to care and to ask questions if they do not understand what they are told or what they should do.
[2020-08-07] MEDS: SODIUM CHLORIDE 0.9% IV 1,000 ML 100 ML IV CONT (19:39)
[2020-08-07 20:50] LABS: Glucose Point of Care 93 (65-105)
--- NOTE | 2020-08-07 21:23 | ADMGEN ---
This patient, Eleazar Vincent, was admitted to IMU Room 200-01 FROM TRIGONOMETRY TUTOR 08/07/201904. Patient/family oriented to hospital policies and general routines including ID bracelet, bed and alarms, visiting hours, pain management, procedures, bathroom and other care routines, personal items, smoking policy, room service/diet, and visiting hours. Valuables list has been completed. Information on how to activate the Rapid Response Team has been discussed. Patient/Family are encouraged to report perceived risks to care and to ask questions if they do not understand what they are told or what they should do.
[2020-08-07] MEDS: ATORVASTATIN 40 MG TABLET 80 MG PO (21:39)
[2020-08-07] MEDS: PANTOPRAZOLE 40 MG TABLET PO (21:39)
[2020-08-07] MEDS: METOPROLOL TARTRATE 12.5 MG TABLET PO (21:39)
[2020-08-08] VITALS (19 sets, daily range): BP systolic 102–141; BP diastolic 52–85; PULSE 78–104; RESP 15–22; TEMP 36.3–37.2; O2SAT 98–100
[2020-08-08] MEDS: TICAGRELOR 90 MG TABLET PO ×2 (09:02→20:38)
[2020-08-08] MEDS: ASPIRIN 81 MG ENTERIC TABLET PO (09:02)
[2020-08-08] MEDS: lisinopriL 10 MG TABLET PO (09:03)
[2020-08-08] MEDS: ATORVASTATIN 40 MG TABLET 80 MG PO (09:03)
[2020-08-08] MEDS: PANTOPRAZOLE 40 MG TABLET PO ×2 (09:03→20:37)
[2020-08-08] MEDS: METOPROLOL TARTRATE 12.5 MG TABLET PO ×2 (09:03→20:37)
--- NOTE | 2020-08-08 09:55 | ECHO_ITS ---
Patient Info Name: Eleazar Vincent Age: 34 years : 1985 Gender: Male Ht: 67 in Wt: 275 lbs BSA: 2.49 m2 BP: 140 / 70 mmHg Heart Rhythm: Sinus Rhythm Technical Quality: Good Exam Date: 08/08/2020 10:14 AM Exam Location: [facility] Patient Status: Inpatient Admit Date: 08/07/2020 Staff Ordering Physician: Karrie Rock APRN Manager Content: Mallory Ambrose RDCS Attending Provider: Maxwell Gordon MD Referring Physician: Pranav CASILLAS; Exam Type: CA echo dop color flow w con Study Info Indications I21.4 - Non-ST elevation (NSTEMI) myocardial infarction Complete two-dimensional, color flow and Doppler transthoracic echocardiogram is performed with contrast to opacify the left ventricle and to improve the deliniation of the left ventricle endocardial borders. Contrast/Agitated Saline Contrast/Ag. Saline: Definity Amount: 1.00 ml Administered By: Liliam Yi RN Existing IV Access: Yes IV Access Condition: patent with no signs of infiltration Summary 1. Left ventricular systolic function is mildly reduced, estimated at 50%. There is akinesis of the apex, apical septum, apical anterior lockhart with hypokinesis of the mid anterior wall. 2. Cannot exclude left ventricular apical thrombus due to shadowing, however, a definitve thrombus is not appreciated. 3. There is trace mitral valve regurgitation. 4. No pulmonary hypertension, estimated pulmonary arterial systolic pressure is 14 mmHg. Left Ventricle Left ventricular systolic function is mildly reduced, estimated at 50%. There is akinesis of the apex, apical septum, apical anterior lockhart with hypokinesis of the mid anterior wall. Cannot exclude left ventricular apical thrombus due to shadowing, however, a definitve thrombus is not appreciated. Left ventricular chamber dimension is normal. There is no increased left ventricular wall thickness. The left ventricular diastolic function is normal. Right Ventricle Right ventricular chamber dimension is normal. Right ventricular systolic function is normal. Left Atria Left atrial chamber dimension is normal. Right Atria Right atrial chamber dimension is normal. Aortic Valve The aortic valve is trileaflet. There is no aortic valve stenosis. There is no aortic valve regurgitation. Pulmonic Valve The pulmonic valve is not well visualized. Mitral Valve The mitral valve has normal leaflets. There is trace mitral valve regurgitation. Tricuspid Valve The tricuspid valve leaflets are normal. There is trace tricuspid valve regurgitation. No pulmonary hypertension, estimated pulmonary arterial systolic pressure is 14 mmHg. Pericardium/Pleural The pericardium appears normal. There is no pericardial effusion. Inferior Vena Cava Normal inferior vena cava with >50% collapse upon inspiration consistent with normal right atrial pressure, 5 mmHg. Aorta The aortic root size at the sinus of Valsalva is normal. Left Ventricular Outflow Tract Name Value Normal LVOT 2D LVOT Diameter 2.00 cm LVOT Doppler LVOT Peak Gradient 5 mmHg
--- NOTE | 2020-08-08 10:28 | ECG_ITS ---
Measurements Intervals [place] Rate: 82 P: 35 DC: 168 QRS: 68 QRSD: 97 T: 113 QT: 375 QTc: 439 Interpretive Statements SINUS RHYTHM DELAYED PRECORDIAL R/S TRANSITION ANTEROSEPTAL ST ELEVATION MYOCARDIAL INFARCT- PROBABLY RECENT HIGH LATERAL ST ELEVATION MYOCARDIAL INJURY- PROBABLY RECENT ABNORMAL ECG Electronically Signed On 08-08-2020 11:27:29 CDT by Ramez Celestin D.O.
[2020-08-08] MEDS: PERFLUTREN LIPID MICROSPHERES 1.5 ML VIAL DILUTED TO 10 ML TOTAL VOLUME IV PUSH (10:43)
[2020-08-08 12:41] LABS: Anion Gap 10 mmol/L (8-16); Blood Urea Nitrogen 10 mg/dL (9-20); Calcium 9.1 mg/dL (8.4-10.2); Carbon Dioxide 24 mmol/L (22-30); Chloride 105 mmol/L (98-107); Cholesterol 170 mg/dL (0-200); Estimated CRCL calculation 141 ml/min; Estimated Glomerular Filt Rate > 60; Glucose 107 mg/dL (75-110); HDL Direct 24 mg/dL; Potassium 3.9 mmol/L (3.4-5.0); Sodium 139 mmol/L (137-145); Triglycerides 184 mg/dL (<150)
--- NOTE | 2020-08-08 12:57 | PM.PNCARD ---
Progress Note: A&P Assessment and Plan (1) ST elevation (STEMI) myocardial infarction: Qualifiers: Involved coronary artery: unspecified coronary artery Qualified Code(s): I21.3 - ST elevation (STEMI) myocardial infarction of unspecified site Code(s): I21.3 - ST elevation (STEMI) myocardial infarction of unspecified site Status: Acute Assessment and Plan: Asymptomatic s/p DEVONTE to mid LAD 3.5x20mm Everolimus stent in setting of ant STEMI. Akinesis of apical segments, EF 50% on Echo personally reviewed. No clear thrombus identified. Nonetheless, given patient's recent history of GI bleed and ulcers triple therapy places patient high risk for bleeding. Counseled recommendations for cardiac rehabilitation as an outpatient, importance of compliance of medications particularly aspirin and Brilinta without missing a single dose. Discussed risk for MT and associated complications as well as otherwise. Monitor for bleeding, black or tarry stools and/or bright red blood per rectum. Anticipate discharge home 48 hours post MT to follow up as an outpatient. (2) Ischemic cardiomyopathy: Code(s): I25.5 - Ischemic cardiomyopathy Status: Acute Assessment and Plan: Compensated. EF 50% by echo. Change metoprolol tartrate to Toprol XL 25 mg daily in a.m.. Continue lisinopril. If BP not well controlled increase to 20 mg daily. (3) Essential (primary) hypertension: Code(s): I10 - Essential (primary) hypertension Status: Chronic Assessment and Plan: Uncontrolled at presentation. Increase lisinopril. (4) History of esophageal ulcer: Code(s): Z87.19 - Personal history of other diseases of the digestive system Status: Acute Assessment and Plan: Hemoglobin stable. As above. Discussed risk. GI consultation as appropriate. Follow H&H daily. Continue PPI therapy. (5) Gastro-esophageal reflux disease without esophagitis: Code(s): K21.9 - Gastro-esophageal reflux disease without esophagitis Status: Chronic Assessment and Plan: PPI b.i.d. for now. Additional Plan PPI. Subjective Date/time seen: date of service: 08/08/20 12:57 Follow-up status post anterior ST-elevation MT, DEVONTE to mid LAD Feels very well this AM. Notes CP resolved as soon as the intervention was performed and has not returned. No SOB, dizziness, palpitations. no bleeding. no issues overnight. Review of Systems Review of Systems: All systems reviewed & are unremarkable except as noted in HPI and below Constitutional: Constitutional: Reports as per HPI, Reports no additional constitutional complaints and Reports fatigue Eyes: Eyes: Reports as per HPI and Reports no additional eye complaints ENT: Reports system reviewed and no additional complaints, except as documented and Reports as per HPI Cardiovascular: Cardiovascular: Reports as per HPI, Reports no additional cardiovascular complaints, Reports chest pain, Reports diaphoresis, Denies leg edema, Denies lightheadedness, Reports palpitations, Denies dyspnea and Denies dyspnea on exertion Respiratory: Respiratory: Reports as per HPI, Reports no additional respiratory complaints, Denies hemoptysis, Denies dyspnea and Denies dyspnea on exertion Gastrointestinal: Gastrointestinal: Reports as per HPI, Reports no additional gastrointestinal complaints, Denies abdominal pain, Denies melena, Denies hematochezia, Denies nausea, Denies vomiting and Denies hematemesis Genitourinary: Genitourinary: Reports no additional male genitourinary complaints and Reports as per HPI Musculoskeletal: Musculoskeletal: Reports no additional musculoskeletal complaints and Reports as per HPI Integumentary/Breasts: Skin/Breast: Reports system reviewed and no additional complaints, except as docu and Reports as per HPI Neurologic: Reports system reviewed and no additional complaints, except as documented and Reports as per HPI Psychiatric:
[2020-08-08 12:58] LABS: LDL Cholesterol Direct 117 mg/dL
[2020-08-08 13:17] LABS: Basophils Absolute Auto 0.1 K/mm3 (0.0-0.1); Basophils Percent Auto 0.4 % (0.2-1.2); Eosinophils Absolute Auto 0.2 K/mm3 (0-0.3); Eosinophils Percent Auto 1.6 % (0-4.4); Hematocrit 36.3 % (42.0-52.0); Hemoglobin 11.8 g/dL (14.0-18.0); Immature Granulocyte Absolute 0.06 K/mm3 (0.00-0.031); Immature Granulocyte Percent A 0.5 % (0-0.5); Lymphocytes Absolute Auto 1.99 K/mm3 (0.9-3.2); Lymphocytes Percent Auto 17.8 % (18.3-44.2); Mean Corpuscular HGB Conc 32.5 g/dl (32-36); Mean Corpuscular Hemoglobin 25.8 pg (26-34); Mean Corpuscular Volume 79.4 fl (80-100); Mean Platelet Volume 10.8 fl (7.4-10.4); Monocytes Absolute Auto 0.9 K/mm3 (0.1-0.6); Monocytes Percent Auto 7.8 % (2.6-8.5); Neutrophils Absolute Auto 8.1 K/mm3 (1.3-6.7); Neutrophils Percent Auto 71.9 % (45.5-73.1); Platelet Count Result 405 k/mm3 (150-375); Red Blood Count 4.57 M/mm3 (4.6-6.20); Red Cell Distribution Width 13.3 % (11.5-14.5); White Blood Count 11.2 K/mm3 (4.5-10.0)
[2020-08-08] MEDS: ACETAMINOPHEN 500 MG TABLET 1000 MG PO (17:46)
[2020-08-09] VITALS (19 sets, daily range): BP systolic 105–128; BP diastolic 54–81; PULSE 71–94; RESP 16–22; TEMP 35.7–36.4; O2SAT 98–100
[2020-08-09 05:04] LABS: Hematocrit 35.5 % (42.0-52.0); Hemoglobin 11.5 g/dL (14.0-18.0); Mean Corpuscular HGB Conc 32.4 g/dl (32-36); Mean Corpuscular Hemoglobin 25.6 pg (26-34); Mean Corpuscular Volume 79.1 fl (80-100); Mean Platelet Volume 10.6 fl (7.4-10.4); Platelet Count Result 354 k/mm3 (150-375); Red Blood Count 4.49 M/mm3 (4.6-6.20); Red Cell Distribution Width 13.4 % (11.5-14.5); White Blood Count 11.3 K/mm3 (4.5-10.0)
[2020-08-09 05:20] LABS: Anion Gap 10 mmol/L (8-16); Blood Urea Nitrogen 11 mg/dL (9-20); Calcium 9.1 mg/dL (8.4-10.2); Carbon Dioxide 25 mmol/L (22-30); Chloride 104 mmol/L (98-107); Estimated CRCL calculation 122 ml/min; Estimated Glomerular Filt Rate > 60; Glucose 102 mg/dL (75-110); Sodium 139 mmol/L (137-145)
[2020-08-09] MEDS: ATORVASTATIN 40 MG TABLET 80 MG PO (08:31)
[2020-08-09] MEDS: TICAGRELOR 90 MG TABLET PO ×2 (08:31→20:40)
[2020-08-09] MEDS: lisinopriL 10 MG TABLET PO (08:32)
[2020-08-09] MEDS: PANTOPRAZOLE 40 MG TABLET PO ×2 (08:32→20:40)
[2020-08-09] MEDS: ASPIRIN 81 MG ENTERIC TABLET PO (08:32)
[2020-08-09] MEDS: METOPROLOL SUCCINATE EXT REL 25 MG TABCR PO (08:32)
--- NOTE | 2020-08-09 11:46 | PM.PNCARD ---
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 He is doing well clinically and is on appropriate medical therapy. Discussed the option of discharging him today which the patient would agree to but he seems very anxious about the concept of going home too early. For safety I will keep him in the hospital until at least tomorrow morning. He was asking questions about his medical treatment which were answered in detail particularly questions about it dual anti-platelet therapy. Eleazar Gibbs MD [facility] Subjective Date/time seen: Date of service: 08/09/20 11:46 Interval history: Follow-up visit in this 34-year-old man presenting evening with acute anterior wall infarction. Patient underwent successful PCI of subtotal occlusion of the mid LAD and has done well since then. Moderate troponin rise up to 13 following this event. He is on appropriate medication and has had an uncomplicated event thus far. Patient has no cardiovascular symptoms this morning. Becomes very emotional when he considers his long-term prognosis as he is a father of small children and is now concerned that he will not survive to watch them grow up. His father also had premature coronary artery disease he is surviving multiple coronary interventions. Exam Narrative: Exam Narrative: General: Well developed, alert and oriented x3. No apparent distress, comfortable, pleasant, and cooperative, tearful at times. Head: atraumatic, normocephalic Eyes: EOM intact, sclerae anicteric, conjunctivae unremarkable Ears/Nose: external inspection of ears and nose were grossly normal Mouth/Throat: oral mucosa pink and moist Neck: supple, normal range of motion, no jugular venous distention or carotid bruits, thyroid nonpalpable, trachea midline. Cardiac: Regular rate and rhythm, normal S1-S2, no murmurs, clicks, gallops, or rubs. Lungs: Clear to auscultation bilaterally, no rales, wheezes, or rhonchi. Abdomen: Obese, Soft, nontender, nondistended, positive bowel sounds throughout. No appreciable hepatosplenomegaly, no rebound guarding or rigidity noted. Abdominal aorta nonpalpable, no appreciable bruits. Extremities: No edema, clubbing, and or cyanosis. Extremities warm and well perfused. R groin access site with superficial bruising, no hematoma, bruit 2+ FP 2+DP on Right Skin: Warm and dry without ecchymoses, rashes, and/or petechiae. Musculoskeletal: Muscle strength and tone intact throughout without obvious deformities. Vascular: Carotid upstrokes 2+ bilaterally, radial pulses 2+ bilaterally, dorsalis pedis pulses 2+ bilaterally, posterior tibialis pulses palpable bilaterally. Neurologic: Cranial nerves 2-12 grossly intact, examination grossly nonfocal Pscyhiatric: Mood calm and appropriate. Objective Data Vital Signs Vital Signs: Vital Signs - 24 hr 08/08/20 12:00 08/08/20 14:00 08/08/20 16:00 Temperature 36.3 C L 36.5 C Pulse Rate 87 96 94 Respiratory Rate 18 18 Blood Pressure 120/66 114/80 Pulse Oximetry 99 100 08/08/20 18:00 08/08/20 19:24 08/08/20 19:53 Temperature 36.6 C Pulse Rate 104 H 87 87 Respiratory Rate 15 15 Blood Pressure 102/60 Pulse Oximetry 99 99 08/08/20 20:00 08/08/20 20:37 08/08/20 21:54 Temperature Pulse Rate 96 91 85 Respiratory Rate Blood Pressure Pulse Oximetry 08/08/20 23:44 08/08/20 23:45 08/09/20 00:00 Temperature 36.6 C Pulse Rate 78 78 77 Respiratory Rate 20 20 Blood Pressure 103/59 L Pulse Oximetry 99 99 08/09/20 01:33 08/09/20 03:52 08/09/20 04:00 Temperature 36.4 C Pulse Rate 71 78 87 Respiratory Rate 18 18 Blood Pressure 114/62 Pulse Oximetry 99 99 08/09/20 06:00 08/09/20 08:00 08/09/20 08:32 Temperature Pulse Rate 76 83 90 Respiratory Rate Blood Pre
[2020-08-10] VITALS (8 sets, daily range): BP systolic 116–129; BP diastolic 72–92; PULSE 75–98; RESP 16; TEMP 35.9–36.5; O2SAT 96–100
--- NOTE | 2020-08-10 09:17 | PM.PNCARD ---
Progress Note: A&P Additional Plan 34-year-old gentleman with: Unfortunate diagnosis of premature coronary artery disease presenting with anterior ST-elevation MO. Patient had stuttering symptoms for several days prior to presenting. Underwent successful PCI of the mid LAD which was not totally occluded. Patient is on appropriate medical therapy now asymptomatic and doing well MO has been uncomplicated. Follow-up is scheduled for the office in 2 weeks. Patient was given instructions as to diet and activity restrictions until he is seen in the office Eleazar Gibbs MD [facility] Subjective Date/time seen: Date of service: 08/10/20 09:17 Interval history: Follow-up visit in this 34-year-old man who presented with acute anterior ST-elevation MO Patient is doing well this morning asymptomatic hoping to be discharged Exam Const: General: comfortable and no acute distress HENMT: Mouth: Yes moist mucous membranes Eyes: Sclera: sclerae normal Pupils: Equal, round and reactive pupils present Neck: Neck: supple and no JVD Thyroid: thyroid normal Other: Carotid pulses normal bilaterally there are no audible bruits Resp: Effort & Inspection: normal respiratory effort Auscultation: clear to auscultation bilaterally Cardio: Rate: regular rate Rhythm: regular rhythm Other: PMI not palpable because of his size otherwise unremarkable exam GI: Auscultation: normal bowel sounds Skin: General skin exam: normal color Neuro: Cognition (Neuro): normal cognition Extrem: General: normal to inspection Objective Data Vital Signs Vital Signs: Vital Signs - 24 hr 08/09/20 10:00 08/09/20 12:00 08/09/20 12:48 Temperature 35.7 C L Pulse Rate 88 89 84 Respiratory Rate 20 Blood Pressure 128/81 Pulse Oximetry 100 08/09/20 13:59 08/09/20 16:00 08/09/20 16:44 Temperature 35.8 C L Pulse Rate 84 81 94 Respiratory Rate 22 H Blood Pressure 112/54 L Pulse Oximetry 100 08/09/20 18:00 08/09/20 19:47 08/09/20 20:00 Temperature 36.2 C L Pulse Rate 94 93 93 Respiratory Rate 16 16 Blood Pressure 121/73 Pulse Oximetry 98 98 08/09/20 21:44 08/09/20 23:29 08/10/20 00:00 Temperature 36.4 C Pulse Rate 89 82 82 Respiratory Rate 16 16 Blood Pressure 114/67 Pulse Oximetry 100 100 08/10/20 01:51 08/10/20 03:39 08/10/20 04:00 Temperature 36.5 C Pulse Rate 86 94 84 Respiratory Rate 16 16 Blood Pressure 116/72 Pulse Oximetry 98 98 08/10/20 06:00 08/10/20 08:41 Temperature 35.9 C L Pulse Rate 78 98 Respiratory Rate 16 Blood Pressure 129/92 H Pulse Oximetry 96 Intake/Output Intake/Output: Intake & Output 08/07/20 08/08/20 08/09/20 08/10/20 23:59 23:59 23:59 23:59 Intake Total 2720 2200 450 Output Total 1780 Balance 940 2200 450 Meds/Results Medications: Active Medications Generic Name Dose Route Start Last Admin Trade Name Freq PRN Reason Stop Dose Admin Acetaminophen 1,000 mg 08/08/20 17:22 08/08/20 17:46 Tylenol Tablet PO 1,000 mg Q6H PRN Administration Mild Pain (1-3) or Fever Aspirin 81 mg 08/08/20 09:00 08/09/20 08:32 Aspirin Ec PO 81 mg QAM GEORGE Administration Atorvastatin Calcium 80 mg 08/07/20 21:00 08/09/20 08:31 Lipitor PO 80 mg DAILY GEORGE Administration Lisinopril 10 mg 08/08/20 09:00 08/09/20 08:32 Prinivil PO 10 mg DAILY GEORGE Administration Metoprolol Succinate 25 mg 08/09/20 09:00 08/09/20 08:32 Toprol Xl PO 25 mg QAM GEORGE Administration Pantoprazole Sodium 40 mg 08/07/20 21:00 08/09/20 20:40 Protonix PO 40 mg Q12HR GEORGE Administration Ticagrelor 90 mg 08/08/20 08:00 08/09/20 20:40 Brilinta PO 90 mg Q12HR GEORGE Administration Radiology Results: ITS Impressions Chest X-Ray 08/07/20 17:16 IMPRESSION: No active cardiopulmonary disease
[2020-08-10] MEDS: PANTOPRAZOLE 40 MG TABLET PO (09:20)
[2020-08-10] MEDS: ASPIRIN 81 MG ENTERIC TABLET PO (09:20)
[2020-08-10] MEDS: lisinopriL 10 MG TABLET PO (09:20)
[2020-08-10] MEDS: METOPROLOL SUCCINATE EXT REL 25 MG TABCR PO (09:20)
[2020-08-10] MEDS: TICAGRELOR 90 MG TABLET PO (09:20)
[2020-08-10] MEDS: ATORVASTATIN 40 MG TABLET 80 MG PO (09:20)
--- NOTE | 2020-08-10 09:24 | PM.DS ---
DS: Admitting Diagnosis Admitting Diagnosis Admitting Diagnosis: ST-elevation myocardial infarction DS: Summary Time Spent with Patient Time attestation: Total time spent providing and/or coordinating discharge services: Exam Const: General: comfortable and no acute distress HENMT: Mouth: Yes moist mucous membranes Eyes: Sclera: sclerae normal Pupils: Equal, round and reactive pupils present Neck: Neck: supple and no JVD Thyroid: thyroid normal Resp: Effort & Inspection: normal respiratory effort Auscultation: clear to auscultation bilaterally Cardio: Rate: regular rate Rhythm: regular rhythm Other: No murmur no gallop no rub Skin: General skin exam: normal color Extrem: General: normal to inspection Other: Right groin puncture site is unremarkable Discharge Plan Discharge Attending physician on discharge: Maxwell Gordon Discharging Clinician: Eleazar Gibbs Patient Disposition: Home, Self-Care Activity: other - see discharge instructions Diet: heart healthy Wound Care Instructions: other - see discharge instructions Discharge Instructions: ACTIVITY: No driving for 1 week. This is for short distances only. No lifting, pushing or pulling more than 10 pounds for 1 week. No strenuous exercise or activity until you are released to do so. May shower but no tub baths or swimming pool for 1 week. Avoid commercial hot tubs. They are too hot DO NOT STOP YOUR MEDICATIONS! ONLY YOUR TURN SEWER CAN STOP THE FOLLOWING MEDICATIONS: Aspirin Brilinta Atorvastatin Lisinopril Metoprolol PLEASE CALL THE OFFICE IF THESE MEDICATIONS NEED TO BE STOPPED Keep your stent card in your wallet at all times Read food labels for high levels of sodium, no added salt, avoid fried foods, eat more fruits and vegetables. Stay hydrated. If you have chest pain unrelieved by rest call [address] yourself to the hospital. If you miss one dose of Brilinta take a tablet at the next time due. If you miss 2 doses take a tablet when you remember and resume at the next time due FOLLOW-UP: [facility] is not a provider for your insurance. You may be seen for your initial post hospital follow-up in our office. After that appointment you will need to establish with another natural resources extension educator for further follow-up. Discuss with Dr. Barkley who he would recommend for a natural resources extension educator. Please contact your insurance for a list of natural resources extension educator that except your insurance. Follow up with [facility] ([facility] office at [facility] [address] With Iveth Mendoza NP on August 22, 2020 at 9:30 a.m. Please arrive by 9:15 a.m. for your appointment. Bring photo ID, insurance card(s) and current medication list. Please complete the new patient form on both sides and bring the form to your follow-up appointment Sign up for [facility] The activation code is on your appointment confirmation WOUND CARE: May remove Band aid tomorrow and leave site open to air. Observe for redness, swelling, drainage or bleeding. Wash gently and pat dry when showering. Patient Instructions: Antibiotic Form, Atorvastatin (By mouth), Ticagrelor (By mouth), Heart Attack (DC), Coronary Artery Disease (DC), Gastroesophageal Reflux Disease (DC), Obesity (GEN), Hypertension (DC), Left Heart Catheterization (DC) Stand Alone Forms: General Discharge Information Follow-up/Referrals: Hussein Barkley MD [Primary Care Provider] - Discharge Medications: New aspirin 81 mg Tablet,Delayed Release (Dr/Ec) 81 mg PO QAM Qty: 30 RF: 11 Brilinta 90 mg Tablet 90 mg PO Q12HR Qty: 60 RF: 3 atorvastatin 80 mg tablet 80 mg PO DAILY Qty: 30 RF: 3 atorvastatin 40 mg Tablet 80 mg PO DAILY Qty: 30 RF: 0 lisinopril 10 mg Tablet 10 mg PO DAILY Qty: 30 RF: 0
[2020-08-10] MEDS: diazePAM (*CRX) 5 MG TABLET PO (10:33)
== END 2020-08-10 11:58 | disposition home or self-care (01) | DRG 174 ==
LOC: ANHED 16:47 → ANHIMU 18:03
PROVIDERS: Emergency Medicine; Internal Medicine Cardiovascular Disease; Admitting Provider Internal Medicine Cardiovascular Disease; Emergency Provider Emergency Medicine; PCP Family Medicine; Visit Provider Specialist
PROC: 4A023N7 Measurement of Cardiac Sampling and Pressure, Left Heart, Percutaneous Approach (ICD-10-PCS; CPT 93452; principal; 2020-08-07 17:15)
PROC: 027034Z Dilation of Coronary Artery, One Artery with Drug-eluting Intraluminal Device, Percutaneous Approach (ICD-10-PCS; 2020-08-07 17:15)
PROC: 027034Z Dilation of Coronary Artery, One Artery with Drug-eluting Intraluminal Device, Percutaneous Approach (ICD-10-PCS; 2020-08-07 17:15)
DX: I21.3 ST elevation (STEMI) myocardial infarction of unspecified site (principal); I25.10 Atherosclerotic heart disease of native coronary artery without angina pectoris; I25.5 Ischemic cardiomyopathy; D64.9 Anemia, unspecified; F32.9 Major depressive disorder, single episode, unspecified; F41.1 Generalized anxiety disorder; K21.9 Gastro-esophageal reflux disease without esophagitis; I10 Essential (primary) hypertension; E78.5 Hyperlipidemia, unspecified; E66.01 Morbid (severe) obesity due to excess calories; Z87.19 Personal history of other diseases of the digestive system; Z68.41 Body mass index [BMI] 40.0-44.9, adult
CPT/HCPCS: 36415; 71045; 80048; 80053; 80061; 84484; 85025; 85027; 85610; 85730; 86850; 86900; 86901; 93005; 93458; 99291; A9270; C1725; C1760; C1769; C1874; C1887; C8929; C9606; G0269; J0583; J1644; J2060; J2250; J3010; J7030; J7040; Q9957

== ENCOUNTER 2020-08-31 23:50 | Emergency (ER) | payer BC, SELFPAY ==
[2020-08-31 23:52] VITALS: BP 152/92; PULSE 82; RESP 18; TEMP 35.8; O2SAT 99
--- NOTE | 2020-09-01 00:10 | ED.EXTPRO ---
HPI - Extremity Problem General Chief complaint: Extremity Problem,Nontraumatic Stated complaint: right leg pain Time Seen by Provider: 08/31/20 23:57 Source: RN notes reviewed History of Present Illness HPI Narrative: Patient presents emergency department from home for right leg pain. Patient states that prior to arrival he was sitting on his couch with his legs down when he developed pain in the right leg. Patient states he developed a large red welts on his right anterior thigh that was painful and burning as well as a welt over his right medial foot that was painful and burning. He states that the welts on his leg is now resolved and that the welts on his foot is drastically improved and almost resolved. He states that with this the pain has resolved. He denies any itching with this he states that the remainder of the leg did not hurt it was only in the 2 areas of these welts. He does states that he has a history of a cardiac catheterization in which he was accessed in the right groin but is had no difficulties since that time is on Brilinta. States the leg pain is resolved at this time he denies any fevers or chills chest pain shortness of breath back pain abdominal pain or numbness or tingling in the extremities. He states that approximately 15 minutes prior to this he was sitting on the floor playing with a toy with his dog he took no medication for the symptoms Related Data Allergies Allergy/AdvReac Type Severity Reaction Status Date / Time No Known Allergies Allergy Mild Verified 08/31/20 23:56 Review of Systems Review of Systems: Narrative: Gen.: Denies fevers or chills ENT: Denies congestion Respiratory: Denies shortness of breath or cough CV: Denies chest pain or palpitations GI: Denies abdominal pain nausea, emesis or diarrhea denies bowel or bladder incontinence Musculoskeletal: Reports leg pain Neuro: Denies numbness, tingling, weakness or focal weakness Skin: See HPI Except as documented, all other systems reviewed and negative PMFSH Past Medical History Medical History (Updated 09/01/20 @ 01:00 by Compa uCmmins DO) Acute blood loss anemia Anemia Depression Dysphagia Essential (primary) hypertension LIZANDRO (generalized anxiety disorder) Gastro-esophageal reflux disease without esophagitis HLD (hyperlipidemia) Leukocytosis Melena Upper GI bleed Surgical History Surgical History History of tonsillectomy and adenoidectomy Family History Family History Father Hypertension Family history of coronary artery disease Social History Social History Smoking status: Never smoker Second hand tobacco smoke exposure: No Alcohol intake: former Substance use: never Gender identity (if verbalized by the patient): Male Spiritual care concerns: No Exam Narrative: Exam Narrative: APPEARANCE: No acute distress, nontoxic, resting in bed EYES: EOMI HEENT: Normocephalic, atraumatic, OMM RESPIRATORY: No respiratory distress Clear to auscultation bilaterally with no rhonchi wheezing or rales. CARDIOVASCULAR: Regular rate and rhythm without murmurs rubs or gallops. The right femoral and dorsalis pedis pulse are both 2+ ABDOMINAL: Soft, nontender, nondistended, no rebound or guarding MUSCULOSKELETAl: Moves all extremities. No clubbing, cyanosis or edema. No tenderness of the right calf, no tenderness of the right thigh knee ankle or hip with full range of motion of all there is mild erythema over the right medial heel the remainder the foot has no erythema and there is no tenderness to this area no swelling or ecchymosis in the groin NEURO: Awake and alert. Following commands, speech normal, no focal deficits SKIN:: Warm, dry. No rashes lesions or abrasions PSYCHIATRIC: Normal affect/mood, Course Course Emergency Course: Patient's area of [place]
[2020-09-01 00:39] LABS: Basophils Absolute Auto 0.1 K/mm3 (0.0-0.1); Basophils Percent Auto 0.6 % (0.2-1.2); Eosinophils Absolute Auto 0.5 K/mm3 (0-0.3); Hematocrit 38.4 % (42.0-52.0); Hemoglobin 12.2 g/dL (14.0-18.0); Immature Granulocyte Absolute 0.06 K/mm3 (0.00-0.031); Immature Granulocyte Percent A 0.6 % (0-0.5); Lymphocytes Absolute Auto 2.68 K/mm3 (0.9-3.2); Lymphocytes Percent Auto 27.1 % (18.3-44.2); Mean Corpuscular HGB Conc 31.8 g/dl (32-36); Mean Corpuscular Hemoglobin 24.7 pg (26-34); Mean Corpuscular Volume 77.9 fl (80-100); Mean Platelet Volume 10.9 fl (7.4-10.4); Monocytes Absolute Auto 0.7 K/mm3 (0.1-0.6); Monocytes Percent Auto 7.2 % (2.6-8.5); Neutrophils Absolute Auto 5.9 K/mm3 (1.3-6.7); Neutrophils Percent Auto 59.5 % (45.5-73.1); Platelet Count Result 363 k/mm3 (150-375); Red Blood Count 4.93 M/mm3 (4.6-6.20); Red Cell Distribution Width 13.8 % (11.5-14.5); White Blood Count 9.9 K/mm3 (4.5-10.0)
[2020-09-01 00:47] LABS: Prothrombin Time 13.3 Seconds (11.1-14.7)
[2020-09-01 00:48] LABS: Partial Thromboplastin Time 28.1 SECONDS (22.3-36.8)
[2020-09-01 00:50] LABS: Alanine Aminotransferase 27 U/L (4-50); Albumin Level 4.6 g/dL (3.5-5.1); Alkaline Phosphatase 97 U/L (38-126); Anion Gap 10 mmol/L (8-16); Aspartate Amino Transferase 27 U/L (17-59); Bilirubin,Total 0.2 mg/dL (0.2-1.3); Blood Urea Nitrogen 17 mg/dL (9-20); Carbon Dioxide 27 mmol/L (22-30); Chloride 105 mmol/L (98-107); Estimated CRCL calculation 118 ml/min; Estimated Glomerular Filt Rate > 60; Glucose 124 mg/dL (75-110); Potassium 3.8 mmol/L (3.4-5.0); Sodium 142 mmol/L (137-145)
[2020-09-01 01:11] VITALS: BP 150/75; PULSE 86; RESP 14; O2SAT 99
== END 2020-09-01 01:13 | disposition home or self-care (01) ==
PROVIDERS: Emergency Provider Emergency Medicine; PCP Internal Medicine
DX: T78.40XA Allergy, unspecified, initial encounter (principal); I10 Essential (primary) hypertension; K21.9 Gastro-esophageal reflux disease without esophagitis; F32.9 Major depressive disorder, single episode, unspecified; E78.5 Hyperlipidemia, unspecified; Z79.82 Long term (current) use of aspirin; Z79.02 Long term (current) use of antithrombotics/antiplatelets; D64.9 Anemia, unspecified
CPT/HCPCS: 36415; 80053; 85025; 85610; 85730; 99283

== ENCOUNTER 2020-09-05 08:13 | Outpatient (RCR) | payer BC, SELFPAY ==
[2020-09-05 08:45] VITALS: BP 108/64; PULSE 67; RESP 14; O2SAT 98
[2020-09-05 08:51] VITALS: TEMP 36.8
[2020-09-05 16:08] VITALS: PULSE 67
--- NOTE | 2020-09-11 09:12 | PCCPR ---
Absent without call Called and left a message for Eleazar requesting him to give us a call to verify his absence.
--- NOTE | 2020-09-17 09:24 | PCCPR ---
Addendum entered by Justa Altman RN 09/19/20 14:59: Eleazar returned our call states plans to return on Tuesday09/22/20. Reinforced how important it is to let us know if he is unable to attend with our full classes. Addendum entered by Justa Altman RN 09/18/20 09:27: Called Eleazar and left message requesting he give us a call. Original Note: Absent-no call/no show since orientation. We have called 1 time prior & left message with no returned call. Left another message explaining that if we do not hear back from him by Tuesday that he will be discharged from the program.
--- NOTE | 2020-09-25 15:21 | PCCPR ---
Absent without call or show Spoke with Eleazar today states he had a remote expose to someone who tested positive to covid several days ago. He is awaiting results he was told should be available tomorrow. Requested he call if he is unable to attend.
--- NOTE | 2020-10-06 09:12 | PCCPR ---
Eleazar has been absent no call/no show since his orientation on 09/05. Has returned our calls a couple times with no reason given as to why he hasn't been coming, besides the last time when he said he may have had an exposure to COVID. We asked that he call us back for an update in regards to that and he has not returned our call. Due to his inconsistency on returning our calls or just not calling us back at all and poor attendance we will be discharging him from the program. Message left for patient this am to let him know he would be discharged.
== END 2020-10-06 18:59 | disposition home or self-care (01) ==
LOC: ANHCPREHAB 08:13
PROVIDERS: PCP Internal Medicine; Visit Provider Internal Medicine Cardiovascular Disease
DX: Z95.5 Presence of coronary angioplasty implant and graft (principal); I25.2 Old myocardial infarction
CPT/HCPCS: 93798

== ENCOUNTER 2020-09-24 00:42 | Outpatient (CLI) | payer BC, SELFPAY ==
[2020-09-24 18:24] LABS: SARS-CoV-2 RNA PCR Negative
== END 2020-09-24 00:43 | disposition home or self-care (01) ==
LOC: ANHCOVIDDT 00:42
PROVIDERS: PCP Internal Medicine; Visit Provider Internal Medicine Critical Care Medicine
DX: Z20.828 Contact with and (suspected) exposure to other viral communicable diseases (principal)
CPT/HCPCS: 87635; C9803; U0003

== ENCOUNTER 2020-09-26 08:32 | Outpatient (CLI) | payer BC, SELFPAY ==
--- NOTE | 2020-11-18 08:39 | WPDSLEEPSTUD ---
Sleep Study Date of Study: 09/26/20 Ordering Provider: Iveth Mendoza NP Interpreting Physician: Farida Avina MD Sleep Study Type: Split Polysomnogram Height: 1.7 m Weight: 108.862 kg Body Mass Index: 37.5 Neck Circumference: 18 cm [place]: 7 Reason for Sleep Study hypersomnia Sleep History Eleazar Vincent is a 34-year-old male with loud severe snoring. He wakes up at night choking. Sometimes he feels himself stop breathing and it wakes him. This is moderately-severe and occurs constantly. He wakes up throughout the night and he has excessive daytime sleepiness. He rarely awakens at night with heartburn, belching or coughing. He occasionally awakens from sleep feeling short of breath. He frequently wakes up gasping for breath during the night. He constantly has breathing problems at night reported to my others. He occasionally sweats excessively at night, and occasionally notices his heart pounding or beating irregularly at night. He rarely falls asleep during the day, never involuntarily and never while driving. He does not fall asleep during physical effort. He does not have loss of muscle tone was strong emotion. He occasionally has daytime difficulties due to excessive sleepiness. he rarely feels paralyzed on waking or falling asleep. He does not have vivid dreamlike scenes upon awakening or falling asleep. He is not afraid to go to sleep. He rarely has nightmares. He frequently remembers his dreams. He frequently has racing thoughts. He occasionally feels sad or depressed. He frequently feels anxious. He occasionally notices parts of his body jerking. He does not grind his teeth at night. He is not bothered by pain during the day. He frequently is awakened by pain at night. He rarely wakes up feeling stiff in the morning never with sore or achy muscles. He occasionally wakes up with pain in the neck and spine. He has fatigue, nightmares depression panic and concentration difficulties. He has lost 20 lb in the last several months after a heart attack. Normal bedtime is not recorded on his survey. When he does go to sleep it takes about 2 minutes to fall asleep. He wakes up typically 3 or 4 times at night to use the bathroom and bridge conscious to sleep within 5 minutes. He wakes at 9 in the morning. He normally gets 8 hours of sleep at night. His estimated bedtime is 1:00 a.m. he does take naps in the afternoon or evening. A short 10 or 15 minutes nap is not refreshing. Habits: Never smoked tobacco. Caffeine 30 oz a day. No alcohol or recreational drugs. [facility] Past Medical History Medical History Acute blood loss anemia Anemia Chronic diarrhea Depression Dysphagia Essential (primary) hypertension LIZANDRO (generalized anxiety disorder) Gastro-esophageal reflux disease without esophagitis HLD (hyperlipidemia) Leukocytosis Melena Obese Upper GI bleed Surgical History Surgical History History of tonsillectomy and adenoidectomy Family History Family History Father Family history of coronary artery disease Hypertension Acute myocardial infarction Hyperlipemia Social History Social History Smoking status: Never smoker Second hand tobacco smoke exposure: No Alcohol intake: former Substance use: never Gender identity (if verbalized by the patient): Male Spiritual care concerns: No Medications Home Medications Medication Instructions Recorded Confirmed Type pantoprazole 40 mg tablet,delayed 40 mg PO Q12HR #60 tablet 07/28/20 09/04/20 Rx release aspirin 81 mg PO QAM #30 tablet 08/08/20 09/05/20 Rx atorvastatin 80 mg PO DAILY #30 tablet 08/08/20 09/05/20 Rx nitroglycerin 0.4 mg SUBLINGUAL DIRECTED PRN 08/08/20 09/05/20 Rx #25 tablet ticagrelor [Bril
[2020-11-18 09:02] VITALS: BMI 37.5
== END 2020-09-26 08:33 | disposition home or self-care (01) ==
LOC: ANHCSM 08:32
PROVIDERS: PCP Internal Medicine; Visit Provider Nurse Practitioner Adult Health
DX: G47.33 Obstructive sleep apnea (adult) (pediatric) (principal)
CPT/HCPCS: 95811

== ENCOUNTER 2020-11-11 14:03 | Emergency (ER) | payer OTHER, SELFPAY ==
--- NOTE | ~2020-11-11 | XR_ITS ---
XR chest 1V portable DATE: 11/11/2020 16:42 INDICATION: Dizziness. Nausea, chills. Hypertension. Gastroesophageal reflux. TECHNIQUE: Portable AP chest on 11/11/2020 at 1643 hours COMPARISON: 08/07/2020 portable AP chest FINDINGS: Normal heart size. No hilar or mediastinal enlargement. No pulmonary infiltrate or consolid ation, pleural effusion or pulmonary vascular congestion or pneumothorax. IMPRESSION: No active cardiopulmonary disease Reviewed, dictated and finalized at location B. ENGINEER
[2020-11-11 14:08] VITALS: BP 152/98; PULSE 87; RESP 12; TEMP 36.9; O2SAT 99
[2020-11-11 14:16] VITALS: BP 143/94; PULSE 85; RESP 11; O2SAT 97
--- NOTE | 2020-11-11 14:20 | ECG_ITS ---
Measurements Intervals [place] Rate: 90 P: 26 CO: 159 QRS: 33 QRSD: 93 T: 66 QT: 361 QTc: 442 Interpretive Statements SINUS RHYTHM LOW QRS VOLTAGE IN PRECORDIAL LEADS ANTEROSEPTAL INFARCT, AGE INDETERMINATE ABNORMAL ECG Electronically Signed On 11-11-2020 16:07:17 PROGRAM COUNSELOR by Ramez Celestin D.O.
--- NOTE | 2020-11-11 14:29 | ED.GENADULT ---
HPI - General Adult General Chief complaint: Anxiety <Betsy Borges MD - Last Filed: 11/16/20 07:25> Stated complaint: shaky <Betsy Borges MD - Last Filed: 11/16/20 07:25> Time Seen by Provider: 11/11/20 14:09 <Betsy Borges MD - Last Filed: 11/16/20 07:25> Source: patient <Betsy Borges MD - Last Filed: 11/16/20 07:25> History of Present Illness HPI narrative: Patient is a 34 y/o male complaining of moderate sweating and shaking starting 1 hour ago when he was in a grocery store. He states that his symptoms have improved somewhat, but he still feels dizzy. He denies passing out. He has no chest pain or abdominal pain. <Betsy Borges MD - Last Filed: 11/16/20 07:25> Related Data Home medications: Home Medications Medication Instructions Recorded Confirmed Adults Multivitamin 11/11/20 <Betsy Borges MD - Last Filed: 11/16/20 07:25> Allergies/adverse reactions: Allergies Allergy/AdvReac Type Severity Reaction Status Date / Time No Known Allergies Allergy Mild Verified 11/11/20 14:14 <Betsy Borges MD - Last Filed: 11/16/20 07:25> Review of Systems Constitutional: Constitutional: Denies chills, Reports excessive sweating, Denies fever(s), Denies headache(s) and Denies weakness <Betsy Borges MD - Last Filed: 11/16/20 07:25> Eyes: Eyes: Denies blurry vision <Betsy Borges MD - Last Filed: 11/16/20 07:25> ENT: Denies headache(s) and Denies neck pain <Betsy Borges MD - Last Filed: 11/16/20 07:25> Cardiovascular: Cardiovascular: Denies chest pain and Denies dyspnea <Betsy Borges MD - Last Filed: 11/16/20 07:25> Respiratory: Respiratory: Denies cough and Denies dyspnea <Betsy Borges MD - Last Filed: 11/16/20 07:25> Gastrointestinal: Gastrointestinal: Denies abdominal pain, Denies diarrhea, Denies nausea and Denies vomiting <Betsy Borges MD - Last Filed: 11/16/20 07:25> Genitourinary: Genitourinary: Denies hematuria and Denies dysuria <Betsy Borges MD - Last Filed: 11/16/20 07:25> Musculoskeletal: Musculoskeletal: Denies back pain and Denies neck pain <Betsy Borges MD - Last Filed: 11/16/20 07:25> Neurologic: Reports dizziness, Denies headache(s), Reports tremor(s) and Reports weakness <Betsy Borges MD - Last Filed: 11/16/20 07:25> PMFSH Past Medical History Medical History: Medical History Acute blood loss anemia Anemia Chronic diarrhea Depression Dysphagia Essential (primary) hypertension LIZANDRO (generalized anxiety disorder) Gastro-esophageal reflux disease without esophagitis HLD (hyperlipidemia) Leukocytosis Melena Obese Upper GI bleed <Betsy Borges MD - Last Filed: 11/16/20 07:25> Surgical History Surgical History: Surgical History History of tonsillectomy and adenoidectomy <Betys Borges MD - Last Filed: 11/16/20 07:25> Family History Family History: Family History Father Family history of coronary artery disease Hypertension Acute myocardial infarction Hyperlipemia <Betsy Borges MD - Last Filed: 11/16/20 07:25> Social History Social History: Social History Smoking status: Never smoker Second hand tobacco smoke exposure: No Alcohol intake: former Substance use: never Gender identity (if verbalized by the patient): Male Spiritual care concerns: No <Betsy Borges MD - Last Filed: 11/16/20 07:25> Exam Const: General: no acute distress and well developed <Betsy Borges MD - Last Filed: 11/16/20 07:25> Orientation/consciousness: oriented to person, oriented to place, oriented to time and patient oriented x3 <Betsy Borges MD - Last Filed: 11/16/20 07:25> HENMT: Head: normocephalic <Betsy Borges MD - Last Filed: 11/16/20 07:25> Ears: external ears normal
[2020-11-11 14:32] VITALS: BP 128/79; PULSE 82; RESP 12; O2SAT 98
[2020-11-11 14:58] LABS: Basophils Absolute Auto 0.1 K/mm3 (0.0-0.1); Basophils Percent Auto 0.4 % (0.2-1.2); Eosinophils Absolute Auto 0.2 K/mm3 (0-0.3); Eosinophils Percent Auto 1.4 % (0-4.4); Hematocrit 39.5 % (42.0-52.0); Hemoglobin 12.7 g/dL (14.0-18.0); Immature Granulocyte Absolute 0.06 K/mm3 (0.00-0.031); Immature Granulocyte Percent A 0.5 % (0-0.5); Lymphocytes Absolute Auto 1.48 K/mm3 (0.9-3.2); Lymphocytes Percent Auto 11.3 % (18.3-44.2); Mean Corpuscular HGB Conc 32.2 g/dl (32-36); Mean Corpuscular Volume 74.7 fl (80-100); Mean Platelet Volume 10.5 fl (7.4-10.4); Monocytes Absolute Auto 0.7 K/mm3 (0.1-0.6); Neutrophils Absolute Auto 10.7 K/mm3 (1.3-6.7); Neutrophils Percent Auto 81.4 % (45.5-73.1); Platelet Count Result 342 k/mm3 (150-375); Red Blood Count 5.29 M/mm3 (4.6-6.20); Red Cell Distribution Width 16.3 % (11.5-14.5); White Blood Count 13.1 K/mm3 (4.5-10.0)
[2020-11-11 15:11] LABS: Alanine Aminotransferase 22 U/L (4-50); Albumin Level 4.5 g/dL (3.5-5.1); Alkaline Phosphatase 139 U/L (38-126); Anion Gap 10 mmol/L (8-16); Aspartate Amino Transferase 28 U/L (17-59); Bilirubin,Total 0.7 mg/dL (0.2-1.3); Blood Urea Nitrogen 13 mg/dL (9-20); Calcium 9.4 mg/dL (8.4-10.2); Carbon Dioxide 27 mmol/L (22-30); Chloride 102 mmol/L (98-107); Estimated CRCL calculation 130 ml/min; Estimated Glomerular Filt Rate > 60; Glucose 113 mg/dL (75-110); Sodium 139 mmol/L (137-145)
[2020-11-11 15:21] LABS: Troponin I < 0.012 ng/mL (0.000-0.034)
[2020-11-11 15:45] VITALS: BP 138/78; PULSE 77; RESP 10; O2SAT 98
[2020-11-11] MEDS: LORazepam (*CRX) 1 MG TABLET PO (15:52)
[2020-11-11 16:01] VITALS: BP 127/77; PULSE 81; RESP 11; O2SAT 100
[2020-11-11 17:38] VITALS: BP 129/86; PULSE 85; RESP 13; O2SAT 96
[2020-11-11 17:48] LABS: Troponin I < 0.012 ng/mL (0.000-0.034)
--- NOTE | 2020-11-11 17:48 | PC.NURSE ---
Call to lab, awaiting 3 hr troponin. Pt states is feeling a little better. Updated on wait.
== END 2020-11-11 18:50 | disposition home or self-care (01) ==
PROVIDERS: Emergency Medicine; Emergency Provider Emergency Medicine; PCP Internal Medicine
DX: F41.9 Anxiety disorder, unspecified (principal); R07.9 Chest pain, unspecified; D64.9 Anemia, unspecified; F32.9 Major depressive disorder, single episode, unspecified; I10 Essential (primary) hypertension; K21.9 Gastro-esophageal reflux disease without esophagitis; E78.5 Hyperlipidemia, unspecified; R94.31 Abnormal electrocardiogram [ECG] [EKG]
CPT/HCPCS: 36415; 71045; 80053; 84484; 85025; 93005; 99284; A9270